=== PATIENT | male | born 1965 | race African-American/Black ===

== ENCOUNTER 2019-02-24 11:54 | Inpatient (IN) | payer SELFPAY ==
[~2019-02-24] VITALS: Ht 167.6 cm; Wt 77.1 kg
[~2019-02-24 11:54] MED LIST: HYDR-3164 PO; NAPR-682 PO; ORPH100T PO
[2019-02-24] MEDS ORDERED: traMADol 50 MG TABLET PO ONE (13:15)
--- NOTE | 2019-02-24 13:48 | RAD ---
RIBS RIGHT AND PA CHEST INDICATION: Right rib pain after fall against table one week ago. COMPARISON STUDY: None. FINDINGS: Lungs: Lower lung volume. Right basilar rounded opacity. Pleura: Moderate right pleural effusion. Heart and Mediastinum: The cardiomediastinal silhouette is normal. The great vessels of the thorax are normal. Bones and Soft Tissues: Acute minimally displaced right lateral 11th rib fracture. IMPRESSION: 1. Acute minimally displaced right lateral 11th rib fracture. No pneumothorax. 2. Moderate right pleural effusion, possibly hemothorax. 3. Rounded right basilar lung opacity, which may represent loculated pleural fluid or a chest wall hematoma, although a pulmonary mass is not excluded. Recommend further evaluation with CT of the chest. Electronically signed by: Caio Colmneares MD (02/24/2019 1:45 PM) [facility]
--- NOTE | 2019-02-24 14:39 | PHYS DOC ---
Past Medical History Past Medical History: Hypertension Past Surgical History: No Surgical History Smoking: Less than 1pk/day Alcohol Use: Heavy Additional Information: reports drinking 2 16 ounce cans of beer daily Drug Use: None Adult General Chief Complaint Chief Complaint: BACK PAIN OR INJURY HPI HPI Patient is a 53 year old AA male who presents to the ER with complaints of R low back pain after falling onto a glass table a week ago. Pt currently rates his pain a 8/10 on the pain scale. The pain increases with palpation and movement there are no alleviating factors. Pt states he lost his balance while reaching across his sofa table and that is why he fell. Review of Systems Review of Systems Constitutional: Denies fever or chills [] Eyes: Denies change in visual acuity, redness, or eye pain [] HENT: Denies nasal congestion or sore throat [] Respiratory: Denies cough, wheezing, or shortness of breath [] Cardiovascular: No additional information not addressed in HPI, denies chest pain or palpitations [] GI: Denies abdominal pain, nausea, vomiting, or diarrhea [] : Denies dysuria or hematuria [] Musculoskeletal: See hPI Integument: Denies rash or skin lesions [] Neurologic: Denies headache, focal weakness or sensory changes [] Complete systems were reviewed and found to be within normal limits, except as documented in this note. Current Medications Current Medications Current Medications Medications (Trade) Dose Ordered Sig/[facility] Start Time Stop Time Status Last Admin Dose Admin Tramadol HCl (Ultram) 50 mg 1X ONCE 02/24/19 13:15 02/24/19 13:16 DC 02/24/19 13:13 50 MG Allergies Allergies Allergies Coded Allergies Type Severity Reaction Last Updated Verified No Known Drug Allergies 06/24/16 No Physical Exam Physical Exam Constitutional: Well developed, well nourished, no acute distress, non-toxic appearance. [] HENT: Normocephalic, atraumatic, bilateral external ears normal, nose normal. [] Eyes: conjunctiva normal, no discharge. [] Neck: Normal range of motion, no tenderness, supple, no stridor. [] Cardiovascular:Heart rate regular rhythm Lungs & Thorax: Bilateral breath sounds clear to auscultation in upper lobes, diminished in posterior bases on the right, clear in the posterior left carcamo; lateral R rib TTP, no crepitus, R posterior lower rib TTP [] Abdomen: soft, no tenderness, no masses, no pulsatile masses. [] Skin: Warm, dry, no erythema, no rash. [] Back: No bony tenderness, Bruising noted to R thoracic paraspinal area Extremities: No tenderness, no cyanosis, no clubbing, ROM intact, no edema. [] Neurologic: Alert and oriented X 3, no focal deficits noted. [] Psychologic: Affect normal, judgement normal, mood normal. [] Current Patient Data Vital Signs Vital Signs Date Time Temp Pulse Resp B/P (MAP) Pulse Ox O2 Delivery O2 Flow Rate FiO2 02/24/19 13:13 17 96 Room Air 02/24/19 12:32 98.5 90 145/93 (110) 98.5 EKG EKG [] Radiology/Procedures Radiology/Procedures PROCEDURE: RIBS RIGHT AND PA CHEST RIBS RIGHT AND PA CHEST INDICATION: Right rib pain after fall against table one week ago. COMPARISON STUDY: None. FINDINGS: Lungs: Lower lung volume. Right basilar rounded opacity. Pleura: Moderate right pleural effusion. Heart and Mediastinum: The cardiomediastinal silhouette is normal. The great vessels of the thorax are normal. Bones and Soft Tissues: Acute minimally displaced right lateral 11th rib fracture. IMPRESSION: 1. Acute minimally displaced right lateral 11th rib fracture. No pneumothorax. 2. Moderate right pleural effusion, possibly hemothorax. 3. Rounded right basilar lung opacity, which may represent loculated pleural fluid or a chest wall hematoma, although a pulmonary mass is not excluded. Recommend further evaluation with CT of the chest. [] PROCEDURE: CT CHEST WO CONTRAST CT CHEST WO CONTRAST INDICATION: Fall with rib fracture. COMPARISON STUDY: Chest radiograph 02/24/2019. TECHNIQUE: Unenhanced axial images were obtained through the lungs and upper abdomen. Coronal and sagittal multiplanar reconstructions were also obtained. PQRS compliance statement: One or more of the following individualized dose reduction techniques were utilized for this examination: 1. Automated exposure control 2. Adjustment of the mA and/or kV according to patient size 3. Use of iterative reconstruction technique FINDINGS: Lungs and Airways: No pulmonary mass or consolidation. Right basilar relaxation atelectasis. Calcified pulmonary granulomas. Normal central airways. Pleura: There are several large ovoid well-circumscribed pleural masses in the right hemithorax with central hypoattenuation and areas of calcification. The largest of these measures 13.2 x 7 x 7.3 cm. Heart and Mediastinum: The visualized thyroid gland is normal in size and attenuation. No axillary or supraclavicular lymphadenopathy. No mediastinal lymphadenopathy. Calcified right hilar lymph nodes consistent with remote granulomatous disease. Normal cardiac size. No pericardial effusion. Coronary artery atherosclerotic disease. The great vessels of the thorax are normal. Abdomen: The visualized abdominal organs demonstrate no abnormality. Bones and Soft Tissues: Acute nondisplaced right lateral 11th rib fracture (series 7 image 166). Multilevel degenerative changes of the spine. IMPRESSION: 1. Multiple large right ovoid pleural masses, largest measuring up to 13.2 cm. Considerations would include chronic multiloculated hemothorax or chronic loculated effusion/empyema. Localized fibrous tumor of the pleura can rarely undergo malignant degeneration and metastasize, and might have a similar appearance. Comparison with prior outside imaging would be helpful if available, otherwise contrast enhanced CT chest may provide additional information. PET CT and/or tissue sampling could also be considered. 2. No pulmonary mass. No mediastinal lymphadenopathy. Evaluation for hilar lymphadenopathy impaired by lack of intravenous contrast. 3. Acute nondisplaced right lateral 11th rib fracture. No pneumothorax. Course & Med Decision Making Course & Med Decision Making Pertinent Labs and Imaging studies reviewed. (See chart for details) DX: Acute 11th R rib fx, R hemothorax 1434- Dr. Franklin order CT chest without contrast. Call IR for chest tube insertion. 1437- Dr. Trinidad notified of patient 1445- Dr. Colby will admit patient for R rib fracture and R hemothorax [] Dragon Disclaimer Dragon Disclaimer This electronic medical record was generated, in whole or in part, using a voice recognition dictation system. Departure Departure Impression: Primary Impression: Fracture of rib of right side Additional Impression: Hemothorax on right Disposition: 09 ADMITTED INPATIENT Admitting Physician: CHON (Earnestine) Condition: STABLE Referrals: NO PCP (PCP) Problem Qualifiers Primary Impression: Fracture of rib of right side Encounter type: initial encounter Rib fracture type: single rib Fracture type: closed Qualified Codes: S22.31XA - Fracture of one rib, right side, initial encounter for closed fracture CYDNEY FRANKLIN MANAGER TECHNICAL Feb 24, 2019 14:39
--- NOTE | 2019-02-24 14:55 | PDOC1 ---
History and Physical Date of Admission Date of Admission DATE: 02/24/19 TIME: 14:53 Identification/Chief Complaint Chief Complaint seen in er, 53 year old AA male who presents to the ER with complaints of R low back pain after falling onto a glass table a week ago. states he was reaching for something and lost his balance Past Medical History Past Medical History Past Medical History Past Medical History: Hypertension Past Surgical History: No Surgical History Smoking: Less than 1pk/day Alcohol Use: Heavy Additional Information: reports drinking 2 16 ounce cans of beer daily Drug Use: None family hx HTN ENT: No pertinent hx Family History Family History: High Cholestrol, Hypertension Social History Smoke: <1 pack per day ALCOHOL: heavy Drugs: None Current Medications Current Medications Current Medications Tramadol HCl (Ultram) 50 mg 1X ONCE PO Last administered on 02/24/19at 13:13; Start 02/24/19 at 13:15; Stop 02/24/19 at 13:16; Status DC Active Scripts Active Black 5-325 Tablet (Acetaminophen/Hydrocodone Bitart) 1 Each Tablet 1 Tab PO PRN Q6HRS PRN Orphenadrine Citrate 100 Mg Tablet.er 100 Mg PO Q12HR Anaprox Ds (Naproxen Sodium) 550 Mg Tablet 550 Mg PO Q12HR Allergies Allergies: Coded Allergies: No Known Drug Allergies (Unverified , 06/24/16) ROS Review of System Review of Systems Review of Systems Constitutional: Denies fever or chills [] Eyes: Denies change in visual acuity, redness, or eye pain [] HENT: Denies nasal congestion or sore throat [] Respiratory: Denies cough POS MILD shortness of breath [] Cardiovascular: No additional information not addressed in HPI [] GI: Denies abdominal pain, nausea, vomiting, bloody stools or diarrhea [] : Denies dysuria or hematuria [] Musculoskeletal: back pain [] Integument: Denies rash or skin lesions [] Neurologic: Denies headache, focal weakness or sensory changes [] Endocrine: Denies polyuria or polydipsia [] 14 PT systems were reviewed and found to be within normal limits, except as documented . Neurological: Yes Gait Disturbance Physical Exam Physical Exam Physical Exam Physical Exam Constitutional: Well developed, well nourished, no acute distress, non-toxic appearance. [] HENT: Normocephalic, atraumatic, bilateral external ears normal, oropharynx moist, no oral exudates, nose normal. [] Eyes: PERRLA, EOMI, conjunctiva normal, no discharge. [] Neck: Normal range of motion, no tenderness, supple, no stridor. [] Cardiovascular:Heart rate regular rhythm, no murmur [] Lungs & Thorax: Bilateral breath sounds clear to auscultation [] Abdomen: Bowel sounds normal, soft, no tenderness, no masses, no pulsatile masses. [] Skin: Warm, dry, no erythema, no rash. [] Back: CVA tenderness. [] Extremities: No tenderness, no cyanosis, no clubbing, ROM intact, no edema. [] Neurologic: Alert and oriented X 3, normal motor function, normal sensory function, no focal deficits noted. [] Psychologic: Affect normal, judgement normal, mood normal. [] General: mild distress HEENT: EOMI Heart: RRR, no thrills Abdomen: Normal bowel sounds, Soft Rectal Exam: not examined PELVIC: Examination not indicated Extremities: No cyanosis, No edema Neuro: Normal speech, Strength at 5/5 X4 ext, Cranial nerves 3-12 NL Psych/Mental Status: Mental status NL, Mood NL Vitals Vitals Vital Signs Date Time Temp Pulse Resp B/P (MAP) Pulse Ox O2 Delivery O2 Flow Rate FiO2 02/24/19 13:13 17 96 Room Air 02/24/19 12:32 98.5 90 145/93 (110) 98.[address] CHEST WO CONTRAST INDICATION: Fall with rib fracture. COMPARISON STUDY: Chest radiograph 02/24/2019. TECHNIQUE: Unenhanced axial images were obtained through the lungs and upper abdomen. Coronal and sagittal multiplanar reconstructions were also obtained. PQRS compliance statement: One or more of the following individualized dose reduction techniques were utilized for this examination: 1. Automated exposure control 2. Adjustment of the mA and/or kV according to patient size 3. Use of iterative reconstruction technique FINDINGS: Lungs and Airways: No pulmonary mass or consolidation. Right basilar relaxation atelectasis. Calcified pulmonary granulomas. Normal central airways. Pleura: There are several large ovoid well-circumscribed pleural masses in the right hemithorax with central hypoattenuation and areas of calcification. The largest of these measures 13.2 x 7 x 7.3 cm. Heart and Mediastinum: The visualized thyroid gland is normal in size and attenuation. No axillary or supraclavicular lymphadenopathy. No mediastinal lymphadenopathy. Calcified right hilar lymph nodes consistent with remote granulomatous disease. Normal cardiac size. No pericardial effusion. Coronary artery atherosclerotic disease. The great vessels of the thorax are normal. Abdomen: The visualized abdominal organs demonstrate no abnormality. Bones and Soft Tissues: Acute nondisplaced right lateral 11th rib fracture (series 7 image 166). Multilevel degenerative changes of the spine. IMPRESSION: 1. Multiple large right ovoid pleural masses, largest measuring up to 13.2 cm. Considerations would include chronic multiloculated hemothorax or chronic loculated effusion/empyema. Localized fibrous tumor of the pleura can rarely undergo malignant degeneration and metastasize, and might have a similar appearance. Comparison with prior outside imaging would be helpful if available, otherwise contrast enhanced CT chest may provide additional information. PET CT and/or tissue sampling could also be considered. 2. No pulmonary mass. No mediastinal lymphadenopathy. Evaluation for hilar lymphadenopathy impaired by lack of intravenous contrast. 3. Acute nondisplaced right lateral 11th rib fracture. No pneumothorax. Electronically signed by: Penny Logan MD (02/24/2019 3:43 PM) [facility] DICTATED and SIGNED BY: PENNY LOGAN MD DATE: 02/24/19 1543 PATIENT: GARRY DREW GACCOUNT: [id number] : 1965 LOCATION: ER AGE: 53 SEX: M EXAM STATUS: REG ER ORD. PHYSICIAN: CYDNEY FRANKLIN APRN REASON: R rib pain after fall against table 1 week ago, diminished lung sounds PROCEDURE: RIBS RIGHT AND PA CHEST RIBS RIGHT AND PA CHEST INDICATION: Right rib pain after fall against table one week ago. COMPARISON STUDY: None. FINDINGS: Lungs: Lower lung volume. Right basilar rounded opacity. Pleura: Moderate right pleural effusion. Heart and Mediastinum: The cardiomediastinal silhouette is normal. The great vessels of the thorax are normal. Bones and Soft Tissues: Acute minimally displaced right lateral 11th rib fracture. IMPRESSION: 1. Acute minimally displaced right lateral 11th rib fracture. No pneumothorax. 2. Moderate right pleural effusion, possibly hemothorax. 3. Rounded right basilar lung opacity, which may represent loculated pleural fluid or a chest wall hematoma, although a pulmonary mass is not excluded. Recommend further evaluation with CT of the chest. Electronically signed by: Penny Logan MD (02/24/2019 1:45 PM) [facility] VTE Prophylaxis Ordered VTE Prophylaxis Devices: Yes VTE Pharmacological Prophylaxi: Contraindicated Assessment/Plan Assessment/Plan IMPRESSION: 1. Acute minimally displaced right lateral 11th rib fracture. No pneumothorax. 2. Moderate right pleural effusion, possibly hemothorax. 3. Rounded right basilar lung opacity, which may represent loculated pleural fluid or a chest wall hematoma, although a pulmonary mass is not excluded. 4. Mod alcohol abuse 5. Multiple large right ovoid pleural masses, largest measuring up to 13.2 cm. Considerations would include chronic multiloculated hemothorax or chronic loculated effusion/empyema. Localized fibrous tumor of the pleura can rarely undergo malignant degeneration and metastasize, and might have a similar appearance. Comparison with prior outside imaging would be helpful if available, otherwise contrast enhanced CT chest may provide additional information. PET CT and/or tissue sampling could also be considered. 6. No pulmonary mass. No mediastinal lymphadenopathy. Evaluation for hilar lymphadenopathy impaired by lack of intravenous contrast. 7. Acute nondisplaced right lateral 11th rib fracture. No pneumothorax. PLAN ADMIT CT of the chest. PULM CONSULT TRAUMA CONSULT tele ALCOHOL WITHDRAWAL PRECAUTIONS CTS consult for possibly loculated hemothorax 74 MIN PT EXAM, CHART REVIEW, > 50% OF TIME SPENT WITH EXAM, CHART REVIEW, PT CARE COORDINATION KAMILLA JULIAN MD Feb 24, 2019 14:55
--- NOTE | 2019-02-24 15:23 | CONS ---
DATE OF CONSULTATION: PULMONARY CONSULTATION ATTENDING PHYSICIAN: Dr. Colby. REASON FOR CONSULTATION: Abnormal CT chest, suspected hemothorax. HISTORY OF PRESENT ILLNESS: The patient is a 53-year-old male who has no history of tobacco use. He presented to the Emergency Room after he fell last on his back and was complaining of pain in the right lower back area. A chest x-ray was performed in the Emergency Room along with rib series. The patient was found to have moderate partially loculated right pleural effusion and another density, which also appears to be loculated fluid. He also had minimally displaced right lateral 11th rib fracture. The patient underwent a CT of the chest, which shows multiple organised pockets of loculated fluid collection. As a result, I have been asked to see him for further evaluation. He denies any cough, fever or chills. Denies any prior history of pneumonias. No weight loss. He does not smoke cigarettes. No hemoptysis. PAST MEDICAL HISTORY: Essentially unremarkable except history of alcoholism. PAST SURGICAL HISTORY: No surgeries. ALLERGIES: None. MEDICATIONS AT HOME: None. SOCIAL HISTORY: Nonsmoker, but history of chronic alcoholism. FAMILY HISTORY: Noncontributory to lungs. PHYSICAL EXAMINATION: VITAL SIGNS: Reviewed, stable. Pulse ox 96% on room air. NECK: Supple. LUNGS: With diminished breath sounds in the right base. CARDIOVASCULAR: With a regular rate. ABDOMEN: Soft. EXTREMITIES: With no pitting edema. LABORATORY DATA: Have been ordered and are pending. IMPRESSION: 1. Status post fall with organized multiloculated fluid collection in the right lower pleural space. Likely organized hemothorax. Clinically, he lacks symptoms of any malignancy and also lacks symptoms of any infectious etiology. 2. No significant history of tobacco use. 3. History of alcoholism. RECOMMENDATIONS: 1. The patient is currently being admitted. IR has been consulted for CT-guided chest tube drainage. May need a chest tube with bloody effusion. 2. Pain control per PCP. 3. We will send the pleural fluid for analysis including cytology. 4. Obtain hemoglobin and platelet count and coagulopathy panel. 5. Discussed with ER physician. RUBENS BALDERRAMA MD DR: JAMES/jonathan JOB#: [id number] / [id number]
[2019-02-24] MEDS ORDERED: 0.9 % SODIUM CHLORIDE 10 ML DISP.SYRIN. IV PRN (15:30)
[2019-02-24] MEDS ORDERED: LORazepam 1 MG TABLET PO PRN ×2 (15:30)
[2019-02-24] MEDS ORDERED: cloNIDine HCL 0.1 MG TABLET PO PRN ×2 (15:30)
[2019-02-24] MEDS ORDERED: MAG HYDROX/ALUMINUM HYD/SIMETH 30 ML ORAL.SUSP PO PRN (15:30)
[2019-02-24] MEDS ORDERED: ONDANSETRON PF 4 MG/2 ML VIAL. IV PRN (15:30)
[2019-02-24] MEDS ORDERED: diphenhydrAMINE 50 MG/ML VIAL IVP PRN ×2 (15:30)
[2019-02-24] MEDS ORDERED: HALOPERIDOL LACTATE 5 MG/ML VIAL. IVP PRN (15:30)
[2019-02-24] MEDS ORDERED: DOCUSATE SODIUM 100 MG CAPSULE. PO PRN (15:30)
[2019-02-24] MEDS ORDERED: guaiFENesin ORAL 200 MG/10 ML LIQUID. PO PRN (15:30)
--- NOTE | 2019-02-24 15:46 | RAD ---
CT CHEST WO CONTRAST INDICATION: Fall with rib fracture. COMPARISON STUDY: Chest radiograph 02/24/2019. TECHNIQUE: Unenhanced axial images were obtained through the lungs and upper abdomen. Coronal and sagittal multiplanar reconstructions were also obtained. RS compliance statement: One or more of the following individualized dose reduction techniques were utilized for this examination: 1. Automated exposure control 2. Adjustment of the mA and/or kV according to patient size 3. Use of iterative reconstruction technique FINDINGS: Lungs and Airways: No pulmonary mass or consolidation. Right basilar relaxation atelectasis. Calcified pulmonary granulomas. Normal central airways. Pleura: There are several large ovoid well-circumscribed pleural masses in the right hemithorax with central hypoattenuation and areas of calcification. The largest of these measures 13.2 x 7 x 7.3 cm. Heart and Mediastinum: The visualized thyroid gland is normal in size and attenuation. No axillary or supraclavicular lymphadenopathy. No mediastinal lymphadenopathy. Calcified right hilar lymph nodes consistent with remote granulomatous disease. Normal cardiac size. No pericardial effusion. Coronary artery atherosclerotic disease. The great vessels of the thorax are normal. Abdomen: The visualized abdominal organs demonstrate no abnormality. Bones and Soft Tissues: Acute nondisplaced right lateral 11th rib fracture (series 7 image 166). Multilevel degenerative changes of the spine. IMPRESSION: 1. Multiple large right ovoid pleural masses, largest measuring up to 13.2 cm. Considerations would include chronic multiloculated hemothorax or chronic loculated effusion/empyema. Localized fibrous tumor of the pleura can rarely undergo malignant degeneration and metastasize, and might have a similar appearance. Comparison with prior outside imaging would be helpful if available, otherwise contrast enhanced CT chest may provide additional information. PET CT and/or tissue sampling could also be considered. 2. No pulmonary mass. No mediastinal lymphadenopathy. Evaluation for hilar lymphadenopathy impaired by lack of intravenous contrast. 3. Acute nondisplaced right lateral 11th rib fracture. No pneumothorax. Electronically signed by: Caio Colmenares MD (02/24/2019 3:43 PM) [facility]
[2019-02-24] MEDS ORDERED: MULTIVIT INFUSN,ADULT 4,VIT K 10 ML, THIAMINE INJ 100 MG, FOLIC ACID INJ 1 MG in IV NOR... IV SCH (16:00)
[2019-02-24] MEDS: IPRATRPIUM/ALBUTEROL 0.5/2.5MG 3 ML NEBU. NEB SCH ×3 (16:00→23:35)
[2019-02-24 16:15] LABS: PROTHROMBIN TIME PATIENT 12.7 SEC (11.7-14.0)
--- NOTE | 2019-02-24 16:40 | PDOC ---
SURGICAL PROGRESS NOTE Subjective Trauma consult received Pt off unit for CT Would recommend CTS consult for possibly loculated hemothorax Thanks! Vital Signs Vital Signs Date Time Temp Pulse Resp B/P (MAP) Pulse Ox O2 Delivery O2 Flow Rate FiO2 02/24/19 13:13 17 96 Room Air 02/24/19 12:32 98.5 90 145/93 (110) 98.5 Labs Laboratory Tests Test 02/24/19 15:37 Prothrombin Time 12.7 SEC (11.7-14.0) Prothromb Time International Ratio 1.0 (0.8-1.1) Laboratory Tests Test 02/24/19 15:37 Prothrombin Time 12.7 SEC (11.7-14.0) Prothromb Time International Ratio 1.0 (0.8-1.1) PETR EDWARDS MD Feb 24, 2019 16:40
[2019-02-24 17:12] VITALS: BP 179/114
[2019-02-24] MEDS ORDERED: MULTIVIT INFUSN,ADULT 4,VIT K 10 ML, THIAMINE INJ 100 MG, FOLIC ACID INJ 1 MG in IV NOR... IV ONE (17:30)
[2019-02-24 18:37] LABS: BASO # 0.1 x10^3/uL (0.0-0.2); BASO % 1 % (0-3); EOS # 0.1 x10^3/uL (0.0-0.7); EOS % 2 % (0-3); HEMATOCRIT 41.8 % (39.0-53.0); HEMOGLOBIN 14.5 g/dL (13.0-17.5); LYMPH # 1.6 x10^3/uL (1.0-4.8); LYMPH % 24 % (24-48); MEAN CORPUSCULAR HEMOGLOBIN 32 pg (25-35); MEAN CORPUSCULAR HGB CONC 35 g/dL (31-37); MEAN CORPUSCULAR VOLUME 93 fL (79-100); MONO # 1.1 x10^3/uL (0.0-1.1); MONO % 16 % (0-9); NEUT # 3.6 x10^3/uL (1.8-7.7); NEUT % 56 % (31-73); PLATELET COUNT 272 x10^3/uL (140-400); RED CELL DISTRIBUTION WIDTH 12.7 % (11.5-14.5); WHITE BLOOD COUNT 6.5 x10^3/uL (4.0-11.0)
[2019-02-24] MEDS: ACETAMINOPHEN 325 MG TABLET. PO PRN (18:55)
[2019-02-24 18:58] LABS: ALBUMIN/GLOBULIN RATIO 0.8 (1.0-1.7); CALCIUM 10.1 mg/dL (8.5-10.1); CREATININE 0.9 mg/dL (0.7-1.3); GFR 107.2; POTASSIUM 4.2 mmol/L (3.5-5.1); TOTAL BILIRUBIN 0.8 mg/dL (0.2-1.0); TOTAL PROTEIN 9.2 g/dL (6.4-8.2)
[2019-02-24 19:44] VITALS: BP 141/107
[2019-02-24] MEDS: LORazepam 0.5 MG TABLET PO PRN (20:39)
[2019-02-24 22:45] VITALS: BP 133/99
[2019-02-25] VITALS (15 sets, daily range): BP systolic 67–170; BP diastolic 37–112
[2019-02-25] MEDS: IV NORMAL SALINE 1000ML BAG 1,000 ML IV SCH ×3 (00:40→21:08)
[2019-02-25] MEDS: LORazepam 0.5 MG TABLET PO PRN (03:07)
[2019-02-25] MEDS: ACETAMINOPHEN 325 MG TABLET. PO PRN (03:08)
[2019-02-25] MEDS: IPRATRPIUM/ALBUTEROL 0.5/2.5MG 3 ML NEBU. NEB SCH ×5 (03:55→21:00)
[2019-02-25] MEDS ORDERED: MULTIVIT INFUSN,ADULT 4,VIT K 10 ML, THIAMINE INJ 100 MG, FOLIC ACID INJ 1 MG in IV NOR... IV SCH (09:00)
[2019-02-25] MEDS ORDERED: THIAMINE INJ 100 MG in IV DEXTROSE 5% 50 ML IV SCH (09:00)
[2019-02-25] MEDS: MULTIVITAMIN with MINERAL TABLET. PO SCH (09:00)
[2019-02-25] MEDS: FOLIC ACID 1 MG TABLET. PO SCH (09:00)
[2019-02-25] MEDS: THIAMINE 100 MG TABLET. PO SCH (09:00)
--- NOTE | 2019-02-25 09:00 | PDOC ---
Provider Note Provider Note IR NOTE CT reviewed. No acute appearing effusion or hemothorax. 11th rib fracture noted. The appearance is also not consistent with a subacute hemothorax based on injury less than a week ago. There are more solid appearing components of the pleural based masses/collections some of which are calcified. (Reviewed CT with pulmonology. Will plan on ultrasound eval with possible drain or biopsy. ANTONIA SALAZAR MD Feb 25, 2019 09:00
[2019-02-25 09:16] LABS: ALBUMIN 3.2 g/dL (3.4-5.0); ALBUMIN/GLOBULIN RATIO 0.7 (1.0-1.7); CALCIUM 9.2 mg/dL (8.5-10.1); CREATININE 0.9 mg/dL (0.7-1.3); GFR 107.2; POTASSIUM 3.5 mmol/L (3.5-5.1); TOTAL BILIRUBIN 0.7 mg/dL (0.2-1.0)
--- NOTE | 2019-02-25 09:29 | PDOC ---
PULMONARY PROGRESS NOTES Subjective no soa Vitals Vital Signs Date Time Temp Pulse Resp B/P (MAP) Pulse Ox O2 Delivery O2 Flow Rate FiO2 02/25/19 07:00 98.1 87 18 153/95 (114) 99 Room Air 98.1 General: Alert, No acute distress Lungs: Other (decrease right base) Cardiovascular: S1 Abdomen: Soft Neuro Exam: Alert Extremities: No Edema Skin: Warm Labs Laboratory Tests Test 02/24/19 15:37 02/25/19 08:15 White Blood Count 6.5 x10^3/uL (4.0-11.0) Red Blood Count 4.50 x10^6/uL (4.30-5.70) Hemoglobin 14.5 g/dL (13.0-17.5) Hematocrit 41.8 % (39.0-53.0) Mean Corpuscular Volume 93 fL (79-100) Mean Corpuscular Hemoglobin 32 pg (25-35) Mean Corpuscular Hemoglobin Concent 35 g/dL (31-37) Red Cell Distribution Width 12.7 % (11.5-14.5) Platelet Count 272 x10^3/uL (140-400) Neutrophils (%) (Auto) 56 % (31-73) Lymphocytes (%) (Auto) 24 % (24-48) Monocytes (%) (Auto) 16 % (0-9) Eosinophils (%) (Auto) 2 % (0-3) Basophils (%) (Auto) 1 % (0-3) Neutrophils # (Auto) 3.6 x10^3/uL (1.8-7.7) Lymphocytes # (Auto) 1.6 x10^3/uL (1.0-4.8) Monocytes # (Auto) 1.1 x10^3/uL (0.0-1.1) Eosinophils # (Auto) 0.1 x10^3/uL (0.0-0.7) Basophils # (Auto) 0.1 x10^3/uL (0.0-0.2) Prothrombin Time 12.7 SEC (11.7-14.0) Prothromb Time International Ratio 1.0 (0.8-1.1) Sodium Level 138 mmol/L (136-145) 139 mmol/L (136-145) Potassium Level 4.2 mmol/L (3.5-5.1) 3.5 mmol/L (3.5-5.1) Chloride Level 99 mmol/L (98-107) 102 mmol/L (98-107) Carbon Dioxide Level 29 mmol/L (21-32) 29 mmol/L (21-32) Anion Gap 10 (6-14) 8 (6-14) Blood Urea Nitrogen 15 mg/dL (8-26) 10 mg/dL (8-26) Creatinine 0.9 mg/dL (0.7-1.3) 0.9 mg/dL (0.7-1.3) Estimated GFR (Cockcroft-Gault) 107.2 107.2 BUN/Creatinine Ratio 17 (6-20) 11 (6-20) Glucose Level 90 mg/dL (70-99) 101 mg/dL (70-99) Calcium Level 10.1 mg/dL (8.5-10.1) 9.2 mg/dL (8.5-10.1) Total Bilirubin 0.8 mg/dL (0.2-1.0) 0.7 mg/dL (0.2-1.0) Aspartate Amino Transf (AST/SGOT) 29 U/L (15-37) 26 U/L (15-37) Alanine Aminotransferase (ALT/SGPT) 33 U/L (16-63) 25 U/L (16-63) Alkaline Phosphatase 76 U/L (46-116) 61 U/L (46-116) Total Protein 9.2 g/dL (6.4-8.2) 8.0 g/dL (6.4-8.2) Albumin 4.0 g/dL (3.4-5.0) 3.2 g/dL (3.4-5.0) Albumin/Globulin Ratio 0.8 (1.0-1.7) 0.7 (1.0-1.7) Laboratory Tests Test 02/24/19 15:37 02/25/19 08:15 White Blood Count 6.5 x10^3/uL (4.0-11.0) Red Blood Count 4.50 x10^6/uL (4.30-5.70) Hemoglobin 14.5 g/dL (13.0-17.5) Hematocrit 41.8 % (39.0-53.0) Mean Corpuscular Volume 93 fL (79-100) Mean Corpuscular Hemoglobin 32 pg (25-35) Mean Corpuscular Hemoglobin Concent 35 g/dL (31-37) Red Cell Distribution Width 12.7 % (11.5-14.5) Platelet Count 272 x10^3/uL (140-400) Neutrophils (%) (Auto) 56 % (31-73) Lymphocytes (%) (Auto) 24 % (24-48) Monocytes (%) (Auto) 16 % (0-9) Eosinophils (%) (Auto) 2 % (0-3) Basophils (%) (Auto) 1 % (0-3) Neutrophils # (Auto) 3.6 x10^3/uL (1.8-7.7) Lymphocytes # (Auto) 1.6 x10^3/uL (1.0-4.8) Monocytes # (Auto) 1.1 x10^3/uL (0.0-1.1) Eosinophils # (Auto) 0.1 x10^3/uL (0.0-0.7) Basophils # (Auto) 0.1 x10^3/uL (0.0-0.2) Prothrombin Time 12.7 SEC (11.7-14.0) Prothromb Time International Ratio 1.0 (0.8-1.1) Sodium Level 138 mmol/L (136-145) 139 mmol/L (136-145) Potassium Level 4.2 mmol/L (3.5-5.1) 3.5 mmol/L (3.5-5.1) Chloride Level 99 mmol/L (98-107) 102 mmol/L (98-107) Carbon Dioxide Level 29 mmol/L (21-32) 29 mmol/L (21-32) Anion Gap 10 (6-14) 8 (6-14) Blood Urea Nitrogen 15 mg/dL (8-26) 10 mg/dL (8-26) Creatinine 0.9 mg/dL (0.7-1.3) 0.9 mg/dL (0.7-1.3) Estimated GFR (Cockcroft-Gault) 107.2 107.2 BUN/Creatinine Ratio 17 (6-20) 11 (6-20) Glucose Level 90 mg/dL (70-99) 101 mg/dL (70-99) Calcium Level 10.1 mg/dL (8.5-10.1) 9.2 mg/dL (8.5-10.1) Total Bilirubin 0.8 mg/dL (0.2-1.0) 0.7 mg/dL (0.2-1.0) Aspartate Amino Transf (AST/SGOT) 29 U/L (15-37) 26 U/L (15-37) Alanine Aminotransferase (ALT/SGPT) 33 U/L (16-63) 25 U/L (16-63) Alkaline Phosphatase 76 U/L (46-116) 61 U/L (46-116) Total Protein 9.2 g/dL (6.4-8.2) 8.0 g/dL (6.4-8.2) Albumin 4.0 g/dL (3.4-5.0) 3.2 g/dL (3.4-5.0) Albumin/Globulin Ratio 0.8 (1.0-1.7) 0.7 (1.0-1.7) Medications Active Scripts Medications Dose Route/Sig Max Daily Dose Days Date Category [place] 5-325 Tablet (Acetaminophen/Hydrocodone Bitart) 1 Each Tablet 1 Tab PO PRN Q6HRS PRN 16 Rx Orphenadrine Citrate 100 Mg Tablet.er 100 Mg PO Q12HR 16 Rx Anaprox Ds (Naproxen Sodium) 550 Mg Tablet 550 Mg PO Q12HR 16 Rx Impression . 1. Status post fall with organized multiloculated fluid collection in the right lower pleural space. ? etiology. Likely organized hemothorax but some calcification suggest chronicity. ? fibrothorax. Clinically, he lacks symptoms of any malignancy and also lacks symptoms of any infectious etiology. 2. No significant history of tobacco use. 3. History of alcoholism. Plan . 1. d/w Dr Trinidad.thoracentesis with possible chest tube drainage. May need VATS/ Decortication if fluid consistency is thick. 2. Pain control per PCP. 3. We will send the pleural fluid for analysis including cytology. 4. No coagulopathy RUBENS BALDERRAMA MD Feb 25, 2019 09:29
[2019-02-25 09:49] LABS: BASO # 0.1 x10^3/uL (0.0-0.2); BASO % 2 % (0-3); EOS # 0.1 x10^3/uL (0.0-0.7); EOS % 2 % (0-3); HEMATOCRIT 38.5 % (39.0-53.0); HEMOGLOBIN 13.2 g/dL (13.0-17.5); LYMPH % 24 % (24-48); MEAN CORPUSCULAR HEMOGLOBIN 32 pg (25-35); MEAN CORPUSCULAR HGB CONC 34 g/dL (31-37); MEAN CORPUSCULAR VOLUME 92 fL (79-100); MONO # 0.6 x10^3/uL (0.0-1.1); MONO % 16 % (0-9); NEUT # 2.2 x10^3/uL (1.8-7.7); NEUT % 56 % (31-73); PLATELET COUNT 246 x10^3/uL (140-400); RED BLOOD COUNT 4.18 x10^6/uL (4.30-5.70); RED CELL DISTRIBUTION WIDTH 12.3 % (11.5-14.5)
--- NOTE | 2019-02-25 10:18 | NUR ---
[facility] following pt for dc planning. Chart reviewed and discussed with RN. Pt lives at home with family. [facility] phoned PAT team for assessment and referral for ETOH tx referral. Will continue to follow. Addendum: 02/26/19 at 0801 by REYNA COWAN Pt seen by PAT team and is provided with resources for and [facility]. Pt has has agreed to follow up with [facility] upon dc.
[2019-02-25 10:33] LABS: BARBITURATES NEG (NEG); BENZODIAZEPINES NEG (NEG); CANNABINOIDS NEG (NEG); COCAINE NEG (NEG); METHADONE NEG (NEG); OPIATES NEG (NEG); PHENCYCLIDINE NEG (NEG)
[2019-02-25 10:34] LABS: AMPHETAMINE/METHAMPHETAMINE NEG (NEG)
[2019-02-25] MEDS ORDERED: LIDOCAINE WITH 8.4% SOD BICARB 3 ML DISP.SYRIN. ONE ×2 (13:02→13:03)
[2019-02-25] MEDS ORDERED: MIDAZOLAM HCL/PF 2 MG/2 ML VIAL. ONE ×2 (13:25→13:26)
[2019-02-25] MEDS ORDERED: fentaNYL PF VIAL 100 MCG/2 ML VIAL ONE ×2 (13:25→13:26)
--- NOTE | 2019-02-25 13:45 | PDOC ---
[facility] PROGRESS NOTE Chief Complaint Chief Complaint Hemothorax Hypertension History of Present Illness History of Present Illness 02/25/19 Pt seen and examined at bedside Pt sitting on side of bed with NAD Chest tube procedure today DW multiple family members at length DW Dr Trinidad Vitals/I&O Vitals/I&O: Vital Signs Date Time Temp Pulse Resp B/P (MAP) Pulse Ox O2 Delivery O2 Flow Rate FiO2 02/25/19 13:33 90 12 100 Nasal Cannula 2.0 02/25/19 11:00 98.1 140/98 (112) 98.1 I & O0 02/24/19 02/24/19 02/25/19 15:00 23:00 07:00 Intake Total 0 ml 60 ml Balance 0 ml 60 ml Physical Exam General: mild distress Heart: Regular rate, Normal S1 Lungs: Other (decrease right base) Abdomen: Normal bowel sounds, Soft Extremities: No cyanosis, No edema Skin: No significant lesion Labs Labs: Laboratory Tests Test 02/24/19 15:37 02/25/19 08:15 02/25/19 09:45 White Blood Count 6.5 x10^3/uL (4.0-11.0) 4.0 x10^3/uL (4.0-11.0) Red Blood Count 4.50 x10^6/uL (4.30-5.70) 4.18 x10^6/uL (4.30-5.70) Hemoglobin 14.5 g/dL (13.0-17.5) 13.2 g/dL (13.0-17.5) Hematocrit 41.8 % (39.0-53.0) 38.5 % (39.0-53.0) Mean Corpuscular Volume 93 fL (79-100) 92 fL (79-100) Mean Corpuscular Hemoglobin 32 pg (25-35) 32 pg (25-35) Mean Corpuscular Hemoglobin Concent 35 g/dL (31-37) 34 g/dL (31-37) Red Cell Distribution Width 12.7 % (11.5-14.5) 12.3 % (11.5-14.5) Platelet Count 272 x10^3/uL (140-400) 246 x10^3/uL (140-400) Neutrophils (%) (Auto) 56 % (31-73) 56 % (31-73) Lymphocytes (%) (Auto) 24 % (24-48) 24 % (24-48) Monocytes (%) (Auto) 16 % (0-9) 16 % (0-9) Eosinophils (%) (Auto) 2 % (0-3) 2 % (0-3) Basophils (%) (Auto) 1 % (0-3) 2 % (0-3) Neutrophils # (Auto) 3.6 x10^3/uL (1.8-7.7) 2.2 x10^3/uL (1.8-7.7) Lymphocytes # (Auto) 1.6 x10^3/uL (1.0-4.8) 1.0 x10^3/uL (1.0-4.8) Monocytes # (Auto) 1.1 x10^3/uL (0.0-1.1) 0.6 x10^3/uL (0.0-1.1) Eosinophils # (Auto) 0.1 x10^3/uL (0.0-0.7) 0.1 x10^3/uL (0.0-0.7) Basophils # (Auto) 0.1 x10^3/uL (0.0-0.2) 0.1 x10^3/uL (0.0-0.2) Prothrombin Time 12.7 SEC (11.7-14.0) Prothromb Time International Ratio 1.0 (0.8-1.1) Sodium Level 138 mmol/L (136-145) 139 mmol/L (136-145) Potassium Level 4.2 mmol/L (3.5-5.1) 3.5 mmol/L (3.5-5.1) Chloride Level 99 mmol/L (98-107) 102 mmol/L (98-107) Carbon Dioxide Level 29 mmol/L (21-32) 29 mmol/L (21-32) Anion Gap 10 (6-14) 8 (6-14) Blood Urea Nitrogen 15 mg/dL (8-26) 10 mg/dL (8-26) Creatinine 0.9 mg/dL (0.7-1.3) 0.9 mg/dL (0.7-1.3) Estimated GFR (Cockcroft-Gault) 107.2 107.2 BUN/Creatinine Ratio 17 (6-20) 11 (6-20) Glucose Level 90 mg/dL (70-99) 101 mg/dL (70-99) Calcium Level 10.1 mg/dL (8.5-10.1) 9.2 mg/dL (8.5-10.1) Total Bilirubin 0.8 mg/dL (0.2-1.0) 0.7 mg/dL (0.2-1.0) Aspartate Amino Transf (AST/SGOT) 29 U/L (15-37) 26 U/L (15-37) Alanine Aminotransferase (ALT/SGPT) 33 U/L (16-63) 25 U/L (16-63) Alkaline Phosphatase 76 U/L (46-116) 61 U/L (46-116) Total Protein 9.2 g/dL (6.4-8.2) 8.0 g/dL (6.4-8.2) Albumin 4.0 g/dL (3.4-5.0) 3.2 g/dL (3.4-5.0) Albumin/Globulin Ratio 0.8 (1.0-1.7) 0.7 (1.0-1.7) Urine Opiates Screen Neg (NEG) Urine Methadone Screen Neg (NEG) Urine Barbiturates Neg (NEG) Urine Phencyclidine Screen Neg (NEG) Urine Amphetamine/Methamphetamine Neg (NEG) Urine Benzodiazepines Screen Neg (NEG) Urine Cocaine Screen Neg (NEG) Urine Cannabinoids Screen Neg (NEG) Urine Ethyl Alcohol Neg (NEG) Review of Systems Review of Systems: No headache No vision change Assessment and Plan Assessmemt and Plan Problems Medical Problems: (1) Fracture of rib of right side Status: Acute (2) Hemothorax on right Status: Acute Assessment Traumatic rib fx Hemothorax Hypertension Plan Chest tube with possible bx today Pain meds Home Meds PT/OT IV fluids Appreciate Pulm Possible discharge s/p consult with Pulm Comment Review of Relevant I have reviewed the following items amanda (where applicable) has been applied. Medications: Current Medications Medications (Trade) Dose Ordered Sig/Stacy Route PRN Reason Start Time Stop Time Status Last Admin Dose Admin Sodium Chloride 1,000 ml @ 100 mls/hr Q10H IV 02/25/19 00:01 02/25/19 11:34 Acetaminophen (Tylenol) 650 mg PRN Q4HRS PRN PO TEMP OVER 100.4F OR MILD PAIN 02/24/19 15:30 02/25/19 03:08 Albuterol/ Ipratropium (Duoneb) 3 ml Q4H NEB 02/24/19 16:00 02/25/19 11:01 Lorazepam (Ativan) 0.5 mg PRN Q4HRS PRN PO ANXIETY / AGITATION 02/24/19 15:30 02/25/19 03:08 Multivitamins 10 ml/Thiamine HCl 100 mg/Folic Acid 1 mg/Sodium Chloride 1,011.2 ml @ 125 mls/ hr 1X ONCE IV 02/24/19 17:30 02/25/19 01:35 DC 02/24/19 17:27 ADAM RICE III DO Feb 25, 2019 13:45
--- NOTE | 2019-02-25 13:47 | PDOC2 ---
CONSULT Date of Consult Date of Consult DATE: 02/25/19 TIME: 13:43 Reason for Consult Reason for Consult: rib fractures s/p fall Referring Physician Referring Physician: Dr. Colby Identification/Chief Complaint Chief Complaint chest pain Source Source: Chart review, Patient History of Present Illness Reason for Visit: 53 yo M s/p fall one week ago on glass table to his chest. Presented to ER with c/o cont chest pain. Past Medical History Cardiovascular: No pertinent hx ENT: No pertinent hx Past Surgical History Past Surgical History: No pertinent history Family History Family History: High Cholestrol, Hypertension Social History <1 pack per day ALCOHOL: heavy Drugs: None Current Problem List Problem List Problems Medical Problems: (1) Fracture of rib of right side Status: Acute (2) Hemothorax on right Status: Acute Current Medications Current Medications Current Medications Tramadol HCl (Ultram) 50 mg 1X ONCE PO Last administered on 02/24/19at 13:13; Start 02/24/19 at 13:15; Stop 02/24/19 at 13:16; Status DC Sodium Chloride (Normal Saline Flush) 3 ml QSHIFT PRN IV AFTER MEDS AND BLOOD DRAWS; Start 02/24/19 at 15:30 Sodium Chloride 1,000 ml @ 100 mls/hr Q10H IV Last administered on 02/25/19at 11:34; Start 02/25/19 at 00:01 Multivitamins 10 ml/Thiamine HCl 100 mg/Folic Acid 1 mg/Sodium Chloride 1,011.2 ml @ 125 mls/ hr 1X IV ; Start 02/24/19 at 16:00; Stop 02/25/19 at 00:06; Status Cancel Ondansetron HCl (Zofran) 4 mg PRN Q4HRS PRN IV NAUSEA/VOMITING; Start 02/24/19 at 15:30 Zolpidem Tartrate (Ambien) 5 mg PRN QHS PRN PO INSOMNIA; Start 02/24/19 at 15:30 Acetaminophen (Tylenol) 650 mg PRN Q4HRS PRN PO TEMP OVER 100.4F OR MILD PAIN Last administered on 02/25/19at 03:08; Start 02/24/19 at 15:30 Al Hydroxide/Mg Hydroxide (Mylanta Plus Xs) 30 ml PRN DAILY PRN PO HEARTBURN / GAS; Start 02/24/19 at 15:30 Clonidine HCl (Catapres) 0.1 mg PRN Q6HRS PRN PO SBP>160 OR DBP>90; Start 02/24/19 at 15:30 Diphenhydramine HCl (Benadryl) 25 mg PRN Q4HRS PRN IVP ITCHING; Start 02/24/19 at 15:30 Docusate Sodium (Colace) 100 mg PRN BID PRN PO CONSTIPATION; Start 02/24/19 at 15:30 Albuterol/ Ipratropium (Duoneb) 3 ml Q4H NEB Last administered on 02/25/19at 11:01; Start 02/24/19 at 16:00 Guaifenesin (Robitussin) 200 mg PRN Q4HRS PRN PO COUGH; Start 02/24/19 at 15:30 Lorazepam (Ativan) 0.5 mg PRN Q4HRS PRN PO ANXIETY / AGITATION Last administered on 02/25/19at 03:08; Start 02/24/19 at 15:30 Multivitamins 10 ml/Thiamine HCl 100 mg/Folic Acid 1 mg/Sodium Chloride 1,011.2 ml @ 100 mls/ hr DAILY IV ; Start 02/25/19 at 09:00; Stop 03/01/19 at 19:07; Status UNV Multivitamins (Thera M Plus) 1 tab DAILY PO ; Start 02/25/19 at 09:00 Folic Acid (Folic Acid) 1 mg DAILY PO ; Start 02/25/19 at 09:00 Thiamine HCl 100 mg/Dextrose 51 ml @ 100 mls/hr DAILY IV ; Start 02/25/19 at 09:00; Stop 03/01/19 at 09:31; Status UNV Lorazepam (Ativan) 4 mg PRN Q1HR PRN PO For CIWA 8-14; Start 02/24/19 at 15:30 Lorazepam (Ativan) 8 mg PRN Q1HR PRN PO For CIWA 15 or greater; Start 02/24/19 at 15:30 Lorazepam (Ativan Inj) 2 mg PRN Q1HR PRN IV For CIWA 8-14; Start 02/24/19 at 15:30 Lorazepam (Ativan Inj) 4 mg PRN Q1HR PRN IV For CIWA 15 or greater; Start 02/24/19 at 15:30 Haloperidol Lactate (Haldol Inj) 5 mg PRN Q4HRS PRN IVP Hallucinatns,Confusn,Delirium; Start 02/24/19 at 15:30 Diphenhydramine HCl (Benadryl) 25 mg PRN Q15MIN PRN IVP EPS symptoms 2'Haldol admin; Start 02/24/19 at 15:30 Clonidine HCl (Catapres) 0.1 mg PRN Q1HR PRN PO SBP > 180 or DBP > 100, MRX3; Start 02/24/19 at 15:30 Lorazepam (Ativan Inj) 2 mg PRN Q15MIN PRN IV SEE COMMENTS; Start 02/24/19 at 15:30; Status UNV Lorazepam (Ativan Inj) 4 mg PRN Q15MIN PRN IV SEE COMMENTS; Start 02/24/19 at 15:30; Status UNV Thiamine Mononitrate (Vitamin B-1) 100 mg DAILY PO ; Start 02/25/19 at 09:00 Multivitamins 10 ml/Thiamine HCl 100 mg/Folic Acid 1 mg/Sodium Chloride 1,011.2 ml @ 125 mls/ hr 1X ONCE IV Last administered on 02/24/19at 17:27; Start 02/24/19 at 17:30; Stop 02/25/19 at 01:35; Status DC Oxycodone/ Acetaminophen (Percocet 5/325) 1 tab PRN Q3HRS PRN PO SEVERE PAIN 7- 10; Start 02/25/19 at 03:30 Lidocaine/Sodium Bicarbonate (Buffered Lidocaine 1%) 3 ml STK-MED ONCE .ROUTE ; Start 02/25/19 at 13:02; Stop 02/25/19 at 13:02; Status DC Lidocaine/Sodium Bicarbonate (Buffered Lidocaine 1%) 3 ml STK-MED ONCE .ROUTE ; Start 02/25/19 at 13:03; Stop 02/25/19 at 13:03; Status DC Midazolam HCl (Versed) 2 mg STK-MED ONCE .ROUTE ; Start 02/25/19 at 13:25; Stop 02/25/19 at 13:25; Status DC Fentanyl Citrate (Fentanyl 2ml Vial) 100 mcg STK-MED ONCE .ROUTE ; Start 02/25/19 at 13:25; Stop 02/25/19 at 13:25; Status DC Midazolam HCl (Versed) 2 mg STK-MED ONCE .ROUTE ; Start 02/25/19 at 13:26; Stop 02/25/19 at 13:27; Status DC Fentanyl Citrate (Fentanyl 2ml Vial) 100 mcg STK-MED ONCE .ROUTE ; Start 02/25/19 at 13:26; Stop 02/25/19 at 13:27; Status DC Active Scripts Active [place] 5-325 Tablet (Acetaminophen/Hydrocodone Bitart) 1 Each Tablet 1 Tab PO PRN Q6HRS PRN Orphenadrine Citrate 100 Mg Tablet.er 100 Mg PO Q12HR Anaprox Ds (Naproxen Sodium) 550 Mg Tablet 550 Mg PO Q12HR Allergies Allergies: Coded Allergies: No Known Drug Allergies (Unverified , 06/24/16) ROS Respiratory: YES: Pleuritic Pain Physical Exam General: Alert, Oriented X3, Cooperative, No acute distress HEENT: PERRLA Lungs: Normal air movement, Other (NTTP on chest, stable) Abdomen: Soft, No tenderness Extremities: No clubbing, No cyanosis Skin: No rashes, No breakdown Neuro: Normal speech, Sensation intact Psych/Mental Status: Mental status NL, Mood NL Vitals VITALS Vital Signs Date Time Temp Pulse Resp B/P (MAP) Pulse Ox O2 Delivery O2 Flow Rate FiO2 02/25/19 13:33 90 12 100 Nasal Cannula 2.0 02/25/19 11:00 98.1 140/98 (112) 98.1 Labs Labs Laboratory Tests Test 02/24/19 15:37 02/25/19 08:15 02/25/19 09:45 White Blood Count 6.5 x10^3/uL (4.0-11.0) 4.0 x10^3/uL (4.0-11.0) Red Blood Count 4.50 x10^6/uL (4.30-5.70) 4.18 x10^6/uL (4.30-5.70) Hemoglobin 14.5 g/dL (13.0-17.5) 13.2 g/dL (13.0-17.5) Hematocrit 41.8 % (39.0-53.0) 38.5 % (39.0-53.0) Mean Corpuscular Volume 93 fL (79-100) 92 fL (79-100) Mean Corpuscular Hemoglobin 32 pg (25-35) 32 pg (25-35) Mean Corpuscular Hemoglobin Concent 35 g/dL (31-37) 34 g/dL (31-37) Red Cell Distribution Width 12.7 % (11.5-14.5) 12.3 % (11.5-14.5) Platelet Count 272 x10^3/uL (140-400) 246 x10^3/uL (140-400) Neutrophils (%) (Auto) 56 % (31-73) 56 % (31-73) Lymphocytes (%) (Auto) 24 % (24-48) 24 % (24-48) Monocytes (%) (Auto) 16 % (0-9) 16 % (0-9) Eosinophils (%) (Auto) 2 % (0-3) 2 % (0-3) Basophils (%) (Auto) 1 % (0-3) 2 % (0-3) Neutrophils # (Auto) 3.6 x10^3/uL (1.8-7.7) 2.2 x10^3/uL (1.8-7.7) Lymphocytes # (Auto) 1.6 x10^3/uL (1.0-4.8) 1.0 x10^3/uL (1.0-4.8) Monocytes # (Auto) 1.1 x10^3/uL (0.0-1.1) 0.6 x10^3/uL (0.0-1.1) Eosinophils # (Auto) 0.1 x10^3/uL (0.0-0.7) 0.1 x10^3/uL (0.0-0.7) Basophils # (Auto) 0.1 x10^3/uL (0.0-0.2) 0.1 x10^3/uL (0.0-0.2) Prothrombin Time 12.7 SEC (11.7-14.0) Prothromb Time International Ratio 1.0 (0.8-1.1) Sodium Level 138 mmol/L (136-145) 139 mmol/L (136-145) Potassium Level 4.2 mmol/L (3.5-5.1) 3.5 mmol/L (3.5-5.1) Chloride Level 99 mmol/L (98-107) 102 mmol/L (98-107) Carbon Dioxide Level 29 mmol/L (21-32) 29 mmol/L (21-32) Anion Gap 10 (6-14) 8 (6-14) Blood Urea Nitrogen 15 mg/dL (8-26) 10 mg/dL (8-26) Creatinine 0.9 mg/dL (0.7-1.3) 0.9 mg/dL (0.7-1.3) Estimated GFR (Cockcroft-Gault) 107.2 107.2 BUN/Creatinine Ratio 17 (6-20) 11 (6-20) Glucose Level 90 mg/dL (70-99) 101 mg/dL (70-99) Calcium Level 10.1 mg/dL (8.5-10.1) 9.2 mg/dL (8.5-10.1) Total Bilirubin 0.8 mg/dL (0.2-1.0) 0.7 mg/dL (0.2-1.0) Aspartate Amino Transf (AST/SGOT) 29 U/L (15-37) 26 U/L (15-37) Alanine Aminotransferase (ALT/SGPT) 33 U/L (16-63) 25 U/L (16-63) Alkaline Phosphatase 76 U/L (46-116) 61 U/L (46-116) Total Protein 9.2 g/dL (6.4-8.2) 8.0 g/dL (6.4-8.2) Albumin 4.0 g/dL (3.4-5.0) 3.2 g/dL (3.4-5.0) Albumin/Globulin Ratio 0.8 (1.0-1.7) 0.7 (1.0-1.7) Urine Opiates Screen Neg (NEG) Urine Methadone Screen Neg (NEG) Urine Barbiturates Neg (NEG) Urine Phencyclidine Screen Neg (NEG) Urine Amphetamine/Methamphetamine Neg (NEG) Urine Benzodiazepines Screen Neg (NEG) Urine Cocaine Screen Neg (NEG) Urine Cannabinoids Screen Neg (NEG) Urine Ethyl Alcohol Neg (NEG) Laboratory Tests Test 02/24/19 15:37 02/25/19 08:15 02/25/19 09:45 White Blood Count 6.5 x10^3/uL (4.0-11.0) 4.0 x10^3/uL (4.0-11.0) Red Blood Count 4.50 x10^6/uL (4.30-5.70) 4.18 x10^6/uL (4.30-5.70) Hemoglobin 14.5 g/dL (13.0-17.5) 13.2 g/dL (13.0-17.5) Hematocrit 41.8 % (39.0-53.0) 38.5 % (39.0-53.0) Mean Corpuscular Volume 93 fL (79-100) 92 fL (79-100) Mean Corpuscular Hemoglobin 32 pg (25-35) 32 pg (25-35) Mean Corpuscular Hemoglobin Concent 35 g/dL (31-37) 34 g/dL (31-37) Red Cell Distribution Width 12.7 % (11.5-14.5) 12.3 % (11.5-14.5) Platelet Count 272 x10^3/uL (140-400) 246 x10^3/uL (140-400) Neutrophils (%) (Auto) 56 % (31-73) 56 % (31-73) Lymphocytes (%) (Auto) 24 % (24-48) 24 % (24-48) Monocytes (%) (Auto) 16 % (0-9) 16 % (0-9) Eosinophils (%) (Auto) 2 % (0-3) 2 % (0-3) Basophils (%) (Auto) 1 % (0-3) 2 % (0-3) Neutrophils # (Auto) 3.6 x10^3/uL (1.8-7.7) 2.2 x10^3/uL (1.8-7.7) Lymphocytes # (Auto) 1.6 x10^3/uL (1.0-4.8) 1.0 x10^3/uL (1.0-4.8) Monocytes # (Auto) 1.1 x10^3/uL (0.0-1.1) 0.6 x10^3/uL (0.0-1.1) Eosinophils # (Auto) 0.1 x10^3/uL (0.0-0.7) 0.1 x10^3/uL (0.0-0.7) Basophils # (Auto) 0.1 x10^3/uL (0.0-0.2) 0.1 x10^3/uL (0.0-0.2) Prothrombin Time 12.7 SEC (11.7-14.0) Prothromb Time International Ratio 1.0 (0.8-1.1) Sodium Level 138 mmol/L (136-145) 139 mmol/L (136-145) Potassium Level 4.2 mmol/L (3.5-5.1) 3.5 mmol/L (3.5-5.1) Chloride Level 99 mmol/L (98-107) 102 mmol/L (98-107) Carbon Dioxide Level 29 mmol/L (21-32) 29 mmol/L (21-32) Anion Gap 10 (6-14) 8 (6-14) Blood Urea Nitrogen 15 mg/dL (8-26) 10 mg/dL (8-26) Creatinine 0.9 mg/dL (0.7-1.3) 0.9 mg/dL (0.7-1.3) Estimated GFR (Cockcroft-Gault) 107.2 107.2 BUN/Creatinine Ratio 17 (6-20) 11 (6-20) Glucose Level 90 mg/dL (70-99) 101 mg/dL (70-99) Calcium Level 10.1 mg/dL (8.5-10.1) 9.2 mg/dL (8.5-10.1) Total Bilirubin 0.8 mg/dL (0.2-1.0) 0.7 mg/dL (0.2-1.0) Aspartate Amino Transf (AST/SGOT) 29 U/L (15-37) 26 U/L (15-37) Alanine Aminotransferase (ALT/SGPT) 33 U/L (16-63) 25 U/L (16-63) Alkaline Phosphatase 76 U/L (46-116) 61 U/L (46-116) Total Protein 9.2 g/dL (6.4-8.2) 8.0 g/dL (6.4-8.2) Albumin 4.0 g/dL (3.4-5.0) 3.2 g/dL (3.4-5.0) Albumin/Globulin Ratio 0.8 (1.0-1.7) 0.7 (1.0-1.7) Urine Opiates Screen Neg (NEG) Urine Methadone Screen Neg (NEG) Urine Barbiturates Neg (NEG) Urine Phencyclidine Screen Neg (NEG) Urine Amphetamine/Methamphetamine Neg (NEG) Urine Benzodiazepines Screen Neg (NEG) Urine Cocaine Screen Neg (NEG) Urine Cannabinoids Screen Neg (NEG) Urine Ethyl Alcohol Neg (NEG) Images Images CT chest c/w rib fractures and pulm nodules Assessment/Plan Assessment/Plan s/p fall agree with evaluation by IR with possible tube placement and/or biopsy. Recommend CTS consult for possible VATS, if needed. Defer to CTS. Thanks for consult! PETR EDWARDS MD Feb 25, 2019 13:47
[2019-02-25] MEDS ORDERED: MIDAZOLAM HCL/PF 2 MG/2 ML VIAL. IV ONE (14:00)
[2019-02-25] MEDS ORDERED: fentaNYL PF VIAL 100 MCG/2 ML VIAL IV ONE (14:00)
[2019-02-25] MEDS ORDERED: LIDOCAINE WITH 8.4% SOD BICARB 3 ML DISP.SYRIN. IJ ONE (14:00)
--- NOTE | 2019-02-25 16:13 | RAD ---
Single AP view of the chest. Comparison: 02/24/2019. Indication: Postthoracentesis Findings: The heart is not enlarged. There is no pneumothorax or effusion. Stable round appearing mass in the right lung base. Impression: 1. No acute cardiopulmonary process. 2. Near complete resolution of the patient's small pleural effusion. 3. Stable right lower lobe pulmonary mass. Electronically signed by: Neri Castillo MD (02/25/2019 4:10 PM) [id number]
[2019-02-25 17:00] LABS: BF COLOR RED; BF SOURCE PLEURAL
[2019-02-25 17:01] LABS: BF CLARITY TURBID
[2019-02-25 17:02] LABS: BF RBC COUNT 367255 /cmm (Not Established); BF WBC COUNT 307195 /cmm (Not Established)
[2019-02-25 17:05] LABS: PH,BODY FLUID 7.11
[2019-02-25] MEDS: ZOLPIDEM 5 MG TABLET. PO PRN (20:58)
[2019-02-25] MEDS: oxyCODONE/APAP 5/325 1 TAB TABLET PO PRN (20:58)
[2019-02-26] MEDS: oxyCODONE/APAP 5/325 1 TAB TABLET PO PRN ×3 (02:24→21:06)
[2019-02-26] MEDS: IPRATRPIUM/ALBUTEROL 0.5/2.5MG 3 ML NEBU. NEB SCH ×7 (03:22→23:40)
[2019-02-26 03:59] VITALS: BP 144/98
[2019-02-26] MEDS: IV NORMAL SALINE 1000ML BAG 1,000 ML IV SCH ×2 (06:01→16:01)
[2019-02-26 07:10] VITALS: BP 149/96
[2019-02-26] MEDS: THIAMINE 100 MG TABLET. PO SCH (09:02)
[2019-02-26] MEDS: MULTIVITAMIN with MINERAL TABLET. PO SCH (09:02)
[2019-02-26] MEDS: FOLIC ACID 1 MG TABLET. PO SCH (09:02)
--- NOTE | 2019-02-26 09:50 | RAD ---
Procedure: CT-guided right pleural fluid collection aspiration Clinical Indication: multiloculated right pleural mass or fluid collection with areas of calcification. Sedation: Conscious sedation was administered for 15 minutes. The patient was monitored by a qualified independent observer throughout the time of sedation. Please refer to the medical record for exact doses of medications utilized to achieve moderate sedation. The procedure was performed in its entirety using appropriate elements of sterile technique. Consent: The procedure was explained in its entirety to the patient or the patients designated provider relations representative by a member of the treatment team, including a discussion of the risks, benefits and commonly accepted alternatives to the procedure, as well as the expected consequences of no therapy whatsoever. Discussion of the risks included, but was not limited to, those that are most frequent and those that are rare but possibly severe or life-threatening, as well as the possibility of unforeseen complications. Technique and Findings: Following informed consent, the patient was prepped and draped in the usual sterile fashion. 1% Lidocaine was used to achieve local anesthesia over right chest. A small dermatotomy was made. Under periodic CT surveillance, a Sheathed needle was advanced into the targeted pleural collection. Chronic appearing hematoma was aspirated, thought only 12 cc could be removed. This was sent for culture and cytology. The catheter was then removed and hemostasis was achieved with manual compression. Complications: No immediate Impression: CT-guided right pleural fluid collection aspiration. PQRS Compliance Statement: One or more of the following individualized dose reduction techniques were utilized for this examination: 1. Automated exposure control 2. Adjustment of the mA and/or kV according to patient size 3. Use of iterative reconstruction technique
--- NOTE | 2019-02-26 10:44 | PDOC ---
[employer] PROGRESS NOTE Chief Complaint Chief Complaint Hemothorax Hypertension History of Present Illness History of Present Illness 02/26/19 Pt seen and examined at bedside Pt sitting comfortably on side of bed Discussed plan for discharge with patient 02/25/19 Pt seen and examined at bedside Pt sitting on side of bed with NAD Chest tube procedure today DW multiple family members at length DW Dr Trinidad Vitals/I&O Vitals/I&O: Vital Signs Date Time Temp Pulse Resp B/P (MAP) Pulse Ox O2 Delivery O2 Flow Rate FiO2 02/26/19 09:02 96 Room Air 2.0 02/26/19 07:10 98.4 85 16 149/96 (113) 98.4 Physical Exam General: Alert, Oriented X3, Cooperative, No acute distress Heart: Regular rate, Normal S1 Lungs: Other (decrease right base) Abdomen: Soft, No tenderness Extremities: No clubbing, No cyanosis Skin: No rashes, No breakdown Labs Labs: Laboratory Tests Test 02/25/19 13:50 Body Fluid Source Pleural Body Fluid Color Red Body Fluid Clarity Turbid Body Fluid pH 7.11 Body Fluid Nucleated Cells 609992 /cmm (Not Body Fluid Polymorphonuclear Cells % Body Fluid Total RBCs Counted 387406 /cmm (Not Review of Systems Review of Systems: no co SOB no co cough Assessment and Plan Assessmemt and Plan Problems Medical Problems: (1) Fracture of rib of right side Status: Acute (2) Hemothorax on right Status: Acute Assessment Hemothorax Hypertension Plan Discharge w/ Percocet 5 mg DVT prophylaxis Home Meds PT/OT IV fluids Discharge if okay with Pulm Comment Review of Relevant I have reviewed the following items amanda (where applicable) has been applied. Medications: Current Medications Medications (Trade) Dose Ordered Sig/Stacy Route PRN Reason Start Time Stop Time Status Last Admin Dose Admin Lidocaine/Sodium Bicarbonate (Buffered Lidocaine 1%) 5 ml 1X ONCE IJ 02/25/19 14:00 02/25/19 14:01 DC 02/25/19 13:57 Midazolam HCl (Versed) 2 mg 1X ONCE IV 02/25/19 14:00 02/25/19 14:01 DC 02/25/19 13:57 Fentanyl Citrate (Fentanyl 2ml Vial) 100 mcg 1X ONCE IV 02/25/19 14:00 02/25/19 14:01 DC 02/25/19 13:57 ADAM RICE III DO Feb 26, 2019 10:44
[2019-02-26 11:10] VITALS: BP 140/99
--- NOTE | 2019-02-26 11:11 | PDOC ---
CARMEL MENDEZ [employer] 02/26/19 1111: SURGICAL PROGRESS NOTE Subjective denies pain no soa tolerating diet Vital Signs Vital Signs Date Time Temp Pulse Resp B/P (MAP) Pulse Ox O2 Delivery O2 Flow Rate FiO2 02/26/19 10:57 96 Room Air 2.0 02/26/19 07:10 98.4 85 16 149/96 (113) 98.4 General: Alert, Oriented X3, Cooperative, No acute distress Lungs: Normal air movement Abdomen: Soft, No tenderness Labs Laboratory Tests Test 02/24/19 15:37 02/25/19 08:15 02/25/19 09:45 02/25/19 13:50 White Blood Count 6.5 x10^3/uL (4.0-11.0) 4.0 x10^3/uL (4.0-11.0) Red Blood Count 4.50 x10^6/uL (4.30-5.70) 4.18 x10^6/uL (4.30-5.70) Hemoglobin 14.5 g/dL (13.0-17.5) 13.2 g/dL (13.0-17.5) Hematocrit 41.8 % (39.0-53.0) 38.5 % (39.0-53.0) Mean Corpuscular Volume 93 fL (79-100) 92 fL (79-100) Mean Corpuscular Hemoglobin 32 pg (25-35) 32 pg (25-35) Mean Corpuscular Hemoglobin Concent 35 g/dL (31-37) 34 g/dL (31-37) Red Cell Distribution Width 12.7 % (11.5-14.5) 12.3 % (11.5-14.5) Platelet Count 272 x10^3/uL (140-400) 246 x10^3/uL (140-400) Neutrophils (%) (Auto) 56 % (31-73) 56 % (31-73) Lymphocytes (%) (Auto) 24 % (24-48) 24 % (24-48) Monocytes (%) (Auto) 16 % (0-9) 16 % (0-9) Eosinophils (%) (Auto) 2 % (0-3) 2 % (0-3) Basophils (%) (Auto) 1 % (0-3) 2 % (0-3) Neutrophils # (Auto) 3.6 x10^3/uL (1.8-7.7) 2.2 x10^3/uL (1.8-7.7) Lymphocytes # (Auto) 1.6 x10^3/uL (1.0-4.8) 1.0 x10^3/uL (1.0-4.8) Monocytes # (Auto) 1.1 x10^3/uL (0.0-1.1) 0.6 x10^3/uL (0.0-1.1) Eosinophils # (Auto) 0.1 x10^3/uL (0.0-0.7) 0.1 x10^3/uL (0.0-0.7) Basophils # (Auto) 0.1 x10^3/uL (0.0-0.2) 0.1 x10^3/uL (0.0-0.2) Prothrombin Time 12.7 SEC (11.7-14.0) Prothromb Time International Ratio 1.0 (0.8-1.1) Sodium Level 138 mmol/L (136-145) 139 mmol/L (136-145) Potassium Level 4.2 mmol/L (3.5-5.1) 3.5 mmol/L (3.5-5.1) Chloride Level 99 mmol/L (98-107) 102 mmol/L (98-107) Carbon Dioxide Level 29 mmol/L (21-32) 29 mmol/L (21-32) Anion Gap 10 (6-14) 8 (6-14) Blood Urea Nitrogen 15 mg/dL (8-26) 10 mg/dL (8-26) Creatinine 0.9 mg/dL (0.7-1.3) 0.9 mg/dL (0.7-1.3) Estimated GFR (Cockcroft-Gault) 107.2 107.2 BUN/Creatinine Ratio 17 (6-20) 11 (6-20) Glucose Level 90 mg/dL (70-99) 101 mg/dL (70-99) Calcium Level 10.1 mg/dL (8.5-10.1) 9.2 mg/dL (8.5-10.1) Total Bilirubin 0.8 mg/dL (0.2-1.0) 0.7 mg/dL (0.2-1.0) Aspartate Amino Transf (AST/SGOT) 29 U/L (15-37) 26 U/L (15-37) Alanine Aminotransferase (ALT/SGPT) 33 U/L (16-63) 25 U/L (16-63) Alkaline Phosphatase 76 U/L (46-116) 61 U/L (46-116) Total Protein 9.2 g/dL (6.4-8.2) 8.0 g/dL (6.4-8.2) Albumin 4.0 g/dL (3.4-5.0) 3.2 g/dL (3.4-5.0) Albumin/Globulin Ratio 0.8 (1.0-1.7) 0.7 (1.0-1.7) Urine Opiates Screen Neg (NEG) Urine Methadone Screen Neg (NEG) Urine Barbiturates Neg (NEG) Urine Phencyclidine Screen Neg (NEG) Urine Amphetamine/Methamphetamine Neg (NEG) Urine Benzodiazepines Screen Neg (NEG) Urine Cocaine Screen Neg (NEG) Urine Cannabinoids Screen Neg (NEG) Urine Ethyl Alcohol Neg (NEG) Body Fluid Source Pleural Body Fluid Color Red Body Fluid Clarity Turbid Body Fluid pH 7.11 Body Fluid Nucleated Cells 022936 /cmm (Not Body Fluid Polymorphonuclear Cells % Body Fluid Total RBCs Counted 015470 /cmm (Not Laboratory Tests Test 02/25/19 13:50 Body Fluid Source Pleural Body Fluid Color Red Body Fluid Clarity Turbid Body Fluid pH 7.11 Body Fluid Nucleated Cells 663284 /cmm (Not Body Fluid Polymorphonuclear Cells % Body Fluid Total RBCs Counted 165364 /cmm (Not Problem List Problems Medical Problems: (1) Fracture of rib of right side Status: Acute (2) Hemothorax on right Status: Acute Assessment/Plan supportive measures PETR EDWARDS MD 02/26/19 1321: SURGICAL PROGRESS NOTE Assessment/Plan Pt seen and examined. Agree with Ms. Mendez's note Pt denies complaint defer pulm nodule eval to pulm and CTS. Will sign off, but please call for questions. CARMEL MENDEZ APRN Feb 26, 2019 11:11 PETR EDWARDS MD Feb 26, 2019 13:21
--- NOTE | 2019-02-26 12:03 | PDOC ---
PULMONARY PROGRESS NOTES Subjective no soa feels better only 12 cc of fluid came out/ organized hemothorax Vitals Vital Signs Date Time Temp Pulse Resp B/P (MAP) Pulse Ox O2 Delivery O2 Flow Rate FiO2 02/26/19 11:26 Room Air 02/26/19 11:10 98.2 67 16 140/99 (113) 98 98.2 02/26/19 10:57 2.0 General: Alert, No acute distress Lungs: Other (decrease right base) Cardiovascular: S1 Abdomen: Soft Neuro Exam: Alert Extremities: No Edema Skin: Warm Labs Laboratory Tests Test 02/24/19 15:37 02/25/19 08:15 02/25/19 09:45 02/25/19 13:50 White Blood Count 6.5 x10^3/uL (4.0-11.0) 4.0 x10^3/uL (4.0-11.0) Red Blood Count 4.50 x10^6/uL (4.30-5.70) 4.18 x10^6/uL (4.30-5.70) Hemoglobin 14.5 g/dL (13.0-17.5) 13.2 g/dL (13.0-17.5) Hematocrit 41.8 % (39.0-53.0) 38.5 % (39.0-53.0) Mean Corpuscular Volume 93 fL (79-100) 92 fL (79-100) Mean Corpuscular Hemoglobin 32 pg (25-35) 32 pg (25-35) Mean Corpuscular Hemoglobin Concent 35 g/dL (31-37) 34 g/dL (31-37) Red Cell Distribution Width 12.7 % (11.5-14.5) 12.3 % (11.5-14.5) Platelet Count 272 x10^3/uL (140-400) 246 x10^3/uL (140-400) Neutrophils (%) (Auto) 56 % (31-73) 56 % (31-73) Lymphocytes (%) (Auto) 24 % (24-48) 24 % (24-48) Monocytes (%) (Auto) 16 % (0-9) 16 % (0-9) Eosinophils (%) (Auto) 2 % (0-3) 2 % (0-3) Basophils (%) (Auto) 1 % (0-3) 2 % (0-3) Neutrophils # (Auto) 3.6 x10^3/uL (1.8-7.7) 2.2 x10^3/uL (1.8-7.7) Lymphocytes # (Auto) 1.6 x10^3/uL (1.0-4.8) 1.0 x10^3/uL (1.0-4.8) Monocytes # (Auto) 1.1 x10^3/uL (0.0-1.1) 0.6 x10^3/uL (0.0-1.1) Eosinophils # (Auto) 0.1 x10^3/uL (0.0-0.7) 0.1 x10^3/uL (0.0-0.7) Basophils # (Auto) 0.1 x10^3/uL (0.0-0.2) 0.1 x10^3/uL (0.0-0.2) Prothrombin Time 12.7 SEC (11.7-14.0) Prothromb Time International Ratio 1.0 (0.8-1.1) Sodium Level 138 mmol/L (136-145) 139 mmol/L (136-145) Potassium Level 4.2 mmol/L (3.5-5.1) 3.5 mmol/L (3.5-5.1) Chloride Level 99 mmol/L (98-107) 102 mmol/L (98-107) Carbon Dioxide Level 29 mmol/L (21-32) 29 mmol/L (21-32) Anion Gap 10 (6-14) 8 (6-14) Blood Urea Nitrogen 15 mg/dL (8-26) 10 mg/dL (8-26) Creatinine 0.9 mg/dL (0.7-1.3) 0.9 mg/dL (0.7-1.3) Estimated GFR (Cockcroft-Gault) 107.2 107.2 BUN/Creatinine Ratio 17 (6-20) 11 (6-20) Glucose Level 90 mg/dL (70-99) 101 mg/dL (70-99) Calcium Level 10.1 mg/dL (8.5-10.1) 9.2 mg/dL (8.5-10.1) Total Bilirubin 0.8 mg/dL (0.2-1.0) 0.7 mg/dL (0.2-1.0) Aspartate Amino Transf (AST/SGOT) 29 U/L (15-37) 26 U/L (15-37) Alanine Aminotransferase (ALT/SGPT) 33 U/L (16-63) 25 U/L (16-63) Alkaline Phosphatase 76 U/L (46-116) 61 U/L (46-116) Total Protein 9.2 g/dL (6.4-8.2) 8.0 g/dL (6.4-8.2) Albumin 4.0 g/dL (3.4-5.0) 3.2 g/dL (3.4-5.0) Albumin/Globulin Ratio 0.8 (1.0-1.7) 0.7 (1.0-1.7) Urine Opiates Screen Neg (NEG) Urine Methadone Screen Neg (NEG) Urine Barbiturates Neg (NEG) Urine Phencyclidine Screen Neg (NEG) Urine Amphetamine/Methamphetamine Neg (NEG) Urine Benzodiazepines Screen Neg (NEG) Urine Cocaine Screen Neg (NEG) Urine Cannabinoids Screen Neg (NEG) Urine Ethyl Alcohol Neg (NEG) Body Fluid Source Pleural Body Fluid Color Red Body Fluid Clarity Turbid Body Fluid pH 7.11 Body Fluid Nucleated Cells 050431 /cmm (Not Body Fluid Polymorphonuclear Cells % Body Fluid Total RBCs Counted 968812 /cmm (Not Laboratory Tests Test 02/25/19 13:50 Body Fluid Source Pleural Body Fluid Color Red Body Fluid Clarity Turbid Body Fluid pH 7.11 Body Fluid Nucleated Cells 665548 /cmm (Not Body Fluid Polymorphonuclear Cells % Body Fluid Total RBCs Counted 256148 /cmm (Not Medications Active Scripts Medications Dose Route/Sig Max Daily Dose Days Date Category [place] 5-325 Tablet (Acetaminophen/Hydrocodone Bitart) 1 Each Tablet 1 Tab PO PRN Q6HRS PRN 06/24/16 Rx Orphenadrine Citrate 100 Mg Tablet.er 100 Mg PO Q12HR 06/24/16 Rx Anaprox Ds (Naproxen Sodium) 550 Mg Tablet 550 Mg PO Q12HR 06/24/16 Rx Impression . 1. Status post fall with organized multiloculated fluid collection in the right lower pleural space. ? etiology. Likely organized hemothorax but some calcification suggest chronicity. ? fibrothorax. Clinically, he lacks symptoms of any malignancy and also lacks symptoms of any infectious etiology. s/p thoracentesis, only 12 cc came out. c/w organized hemothorax 2. No significant history of tobacco use. 3. History of alcoholism. Plan . 1. Consult thoracic surgery. May need VATS/ Decortication 2. Pain control per PCP. 3. pleural fluid for analysis c/w hemothorax 4. No coagulopathy RUBENS BALDERRAMA MD Feb 26, 2019 12:03
[2019-02-26 15:15] VITALS: BP 154/106
--- NOTE | 2019-02-26 16:06 | PATHOLOGY ---
Note [facility] Accession Number: [id number] TESTS RESULT FLAG UNITS REF RANGE LAB Clinician Provided Cytology Information No. of containers..01 Other (Miscellaneous) Source: RT LUNG ASPIRATION DIAGNOSIS: RT LUNG ASPIRATION NEGATIVE FOR MALIGNANT CELLS. PROTEINACEOUS MATERIAL IS PRESENT. THIS INTERPRETATION INCLUDES EVALUATION OF A CELL BLOCK. SCANT CELLULARITY. NORMAL BRONCHIAL CELLS AND MACROPHAGES ARE PRESENT. COMMENT, THE SPECIMEN IS POORLY CELLULAR WITH PREDOMINANTLY BLOOD AND MAY NOT BE HOT DIP GALVANIZER. SUGGEST REPEAT PROCEDURE IF A MASS IS PRESENT AND MALIGNANCY IS SUSPECTED. Signed out by: 02 Darryl Hdez MD, Pathologist NPI- [id number] Performed by: Kaylynn Cunha, [employer] ([facility]) Gross description: 01 2.5 ML, BROWN, THICK /LCS FLAG LEGEND: L-Low Normal,H-High Normal,LL-Alert Low,HH-Alert High <-Panic Low,>-Panic High,A-Abnormal,AA-Critical Abnormal Performed at: [facility] [address] [place] [address] Edgar Bazzi MD, 02 [facility] [address] [place] [address] Scott Trujillo MD, Specimen Comment: A courtesy copy of this report has been sent to Specimen Comment: [phone]. Specimen Comment: Report sent to Performed at: 01 [facility] [place] [address], [place], [place] [id number] MD Edgar Bazzi MD Phone: [phone]
--- NOTE | 2019-02-26 19:33 | PDOC2 ---
CONSULT Date of Consult Date of Consult DATE: 02/26/19 TIME: 19:17 Reason for Consult Reason for Consult: Mechanical fall, right 11th rib fracture, right pleural pathology Referring Physician Referring Physician: Dr Franklin Identification/Chief Complaint Chief Complaint Right sided chest wall pain Source Source: Chart review, Patient History of Present Illness Reason for Visit: The patient is a 53-year-old male, with a history of heavy alcohol consumption, who reports sustaining a mechanical fall approximately one week ago. He tripped and fell on the right side of his chest wall. He denies any LOC. He came to the hospital on February 24, 2019 owing to right-sided pleuritic/torso pain. He underwent a noncontrast CT of the chest which demonstrated a well-circumscribed, 11 cm density with calcification. The differential diagnosis included a loculated hemothorax. An attempt at percutaneous drainage was made which was unsuccessful. He currently has no pain and has normal oxygen saturations on room air. I've reviewed his imaging. His chest x-ray shows a possible right pleural- peritoneal density. Otherwise the chest x-ray is normal. His CT scan, which is without contrast, demonstrates a well-circumscribed density with calcifications within and measures 11 cm in maximum diameter. This density appears to be compressing the dome of the liver. It is also compressing the right lower lobe of the lung. It is not possible, based on the current imaging which lacks intravenous contrast, to determine if the origin of this density/mass is intrapleural or intraperitoneal. Past Medical History Cardiovascular: No pertinent hx ENT: No pertinent hx Past Surgical History Past Surgical History: No pertinent history Family History Family History: High Cholestrol, Hypertension Social History <1 pack per day ALCOHOL: heavy Drugs: None Current Problem List Problem List Problems Medical Problems: (1) Fracture of rib of right side Status: Acute (2) Hemothorax on right Status: Acute Current Medications Current Medications Current Medications Tramadol HCl (Ultram) 50 mg 1X ONCE PO Last administered on 02/24/19at 13:13; Start 02/24/19 at 13:15; Stop 02/24/19 at 13:16; Status DC Sodium Chloride (Normal Saline Flush) 3 ml QSHIFT PRN IV AFTER MEDS AND BLOOD DRAWS; Start 02/24/19 at 15:30 Sodium Chloride 1,000 ml @ 100 mls/hr Q10H IV Last administered on 02/26/19at 06:15; Start 02/25/19 at 00:01 Multivitamins 10 ml/Thiamine HCl 100 mg/Folic Acid 1 mg/Sodium Chloride 1,011.2 ml @ 125 mls/ hr 1X IV ; Start 02/24/19 at 16:00; Stop 02/25/19 at 00:06; Status Cancel Ondansetron HCl (Zofran) 4 mg PRN Q4HRS PRN IV NAUSEA/VOMITING; Start 02/24/19 at 15:30 Zolpidem Tartrate (Ambien) 5 mg PRN QHS PRN PO INSOMNIA Last administered on 02/25/19at 20:58; Start 02/24/19 at 15:30 Acetaminophen (Tylenol) 650 mg PRN Q4HRS PRN PO TEMP OVER 100.4F OR MILD PAIN Last administered on 02/25/19at 03:08; Start 02/24/19 at 15:30 Al Hydroxide/Mg Hydroxide (Mylanta Plus Xs) 30 ml PRN DAILY PRN PO HEARTBURN / GAS; Start 02/24/19 at 15:30 Clonidine HCl (Catapres) 0.1 mg PRN Q6HRS PRN PO SBP>160 OR DBP>90; Start 02/24/19 at 15:30 Diphenhydramine HCl (Benadryl) 25 mg PRN Q4HRS PRN IVP ITCHING; Start 02/24/19 at 15:30 Docusate Sodium (Colace) 100 mg PRN BID PRN PO CONSTIPATION; Start 02/24/19 at 15:30 Albuterol/ Ipratropium (Duoneb) 3 ml Q4H NEB Last administered on 02/26/19at 15:19; Start 02/24/19 at 16:00 Guaifenesin (Robitussin) 200 mg PRN Q4HRS PRN PO COUGH; Start 02/24/19 at 15:30 Lorazepam (Ativan) 0.5 mg PRN Q4HRS PRN PO ANXIETY / AGITATION Last administered on 02/25/19at 03:08; Start 02/24/19 at 15:30 Multivitamins 10 ml/Thiamine HCl 100 mg/Folic Acid 1 mg/Sodium Chloride 1,011.2 ml @ 100 mls/ hr DAILY IV ; Start 02/25/19 at 09:00; Stop 03/01/19 at 19:07; Status UNV Multivitamins (Thera M Plus) 1 tab DAILY PO Last administered on 02/26/19at 09:02; Start 02/25/19 at 09:00 Folic Acid (Folic Acid) 1 mg DAILY PO Last administered on 02/26/19at 09:02; Start 02/25/19 at 09:00 Thiamine HCl 100 mg/Dextrose 51 ml @ 100 mls/hr DAILY IV ; Start 02/25/19 at 09:00; Stop 03/01/19 at 09:31; Status UNV Lorazepam (Ativan) 4 mg PRN Q1HR PRN PO For CIWA 8-14; Start 02/24/19 at 15:30 Lorazepam (Ativan) 8 mg PRN Q1HR PRN PO For CIWA 15 or greater; Start 02/24/19 at 15:30 Lorazepam (Ativan Inj) 2 mg PRN Q1HR PRN IV For CIWA 8-14; Start 02/24/19 at 15:30 Lorazepam (Ativan Inj) 4 mg PRN Q1HR PRN IV For CIWA 15 or greater; Start 02/24/19 at 15:30 Haloperidol Lactate (Haldol Inj) 5 mg PRN Q4HRS PRN IVP Loza ucinatns,Confusn,Delirium; Start 02/24/19 at 15:30 Diphenhydramine HCl (Benadryl) 25 mg PRN Q15MIN PRN IVP EPS symptoms 2'Haldol admin; Start 02/24/19 at 15:30 Clonidine HCl (Catapres) 0.1 mg PRN Q1HR PRN PO SBP > 180 or DBP > 100, MRX3; Start 02/24/19 at 15:30 Lorazepam (Ativan Inj) 2 mg PRN Q15MIN PRN IV SEE COMMENTS; Start 02/24/19 at 15:30; Status UNV Lorazepam (Ativan Inj) 4 mg PRN Q15MIN PRN IV SEE COMMENTS; Start 02/24/19 at 15:30; Status UNV Thiamine Mononitrate (Vitamin B-1) 100 mg DAILY PO Last administered on 02/26/19at 09:02; Start 02/25/19 at 09:00 Multivitamins 10 ml/Thiamine HCl 100 mg/Folic Acid 1 mg/Sodium Chloride 1,011.2 ml @ 125 mls/ hr 1X ONCE IV Last administered on 02/24/19at 17:27; Start 02/24/19 at 17:30; Stop 02/25/19 at 01:35; Status DC Oxycodone/ Acetaminophen (Percocet 5/325) 1 tab PRN Q3HRS PRN PO SEVERE PAIN 7- 10 Last administered on 02/26/19at 09:02; Start 02/25/19 at 03:30 Lidocaine/Sodium Bicarbonate (Buffered Lidocaine 1%) 3 ml STK-MED ONCE .ROUTE ; Start 02/25/19 at 13:02; Stop 02/25/19 at 13:02; Status DC Lidocaine/Sodium Bicarbonate (Buffered Lidocaine 1%) 3 ml STK-MED ONCE .ROUTE ; Start 02/25/19 at 13:03; Stop 02/25/19 at 13:03; Status DC Midazolam HCl (Versed) 2 mg STK-MED ONCE .ROUTE ; Start 02/25/19 at 13:25; Stop 02/25/19 at 13:25; Status DC Fentanyl Citrate (Fentanyl 2ml Vial) 100 mcg STK-MED ONCE .ROUTE ; Start 02/25/19 at 13:25; Stop 02/25/19 at 13:25; Status DC Midazolam HCl (Versed) 2 mg STK-MED ONCE .ROUTE ; Start 02/25/19 at 13:26; Stop 02/25/19 at 13:27; Status DC Fentanyl Citrate (Fentanyl 2ml Vial) 100 mcg STK-MED ONCE .ROUTE ; Start 02/25/19 at 13:26; Stop 02/25/19 at 13:27; Status DC Lidocaine/Sodium Bicarbonate (Buffered Lidocaine 1%) 5 ml 1X ONCE IJ Last administered on 02/25/19at 13:57; Start 02/25/19 at 14:00; Stop 02/25/19 at 14:01; Status DC Midazolam HCl (Versed) 2 mg 1X ONCE IV Last administered on 02/25/19at 13:57; Start 02/25/19 at 14:00; Stop 02/25/19 at 14:01; Status DC Fentanyl Citrate (Fentanyl 2ml Vial) 100 mcg 1X ONCE IV Last administered on 02/25/19at 13:57; Start 02/25/19 at 14:00; Stop 02/25/19 at 14:01; Status DC Active Scripts Active Hiddenite 5-325 Tablet (Acetaminophen/Hydrocodone Bitart) 1 Each Tablet 1 Tab PO PRN Q6HRS PRN Orphenadrine Citrate 100 Mg Tablet.er 100 Mg PO Q12HR Anaprox Ds (Naproxen Sodium) 550 Mg Tablet 550 Mg PO Q12HR Allergies Allergies: Coded Allergies: No Known Drug Allergies (Unverified , 06/24/16) ROS General: No: Chills, Night Sweats, Fatigue, Malaise, Appetite PSYCHOLOGICAL ROS: No: Anxiety, Behavioral Disorder, Concentration difficultie, Decreased libido, Depression, Disorientation, Hallucinations, Hostility, Irritab lity, Memory difficulties, Mood Swings, Obsessive thoughts, Physical abuse, Sexual abuse, Sleep disturbances, Suicidal ideation Eyes: No Blurry vision, No Decreased vision, No Double vision, No Dry eyes, No Excessive tearing, No Eye Pain, No Itchy Eyes, No Loss of vision, No Photophobia, No Scotomata, No Uses contacts, No Uses glasses HEENT: No: Heacaches, Visual Changes, Hearing change, Nasal congestion, Nasal discharge, Oral lesions, Sinus pain, Sore Throat, Epistaxis, Sneezing, Snoring, Tinnitus, Vertigo, Vocal changes ALLERGY AND IMMUNOLOGY: No: Hives, Insect Bite Sensitivity, Itchy/Watery Eyes, Nasal Congestion, Post Nasal Drip, Seasonal Allergies Hematological and Lymphatic: No: Bleeding Problems, Blood Clots, Blood Transfusions, Brusing, Night Sweats, Pallor, Swollen Lymph Nodes ENDOCRINE: No: Breast Changes, Galactorrhea, Hair Pattern Changes, Hot Flashes, Malaise/lethargy, Mood Swings, Palpitations, Polydipsia/polyuria, Skin Changes, Temperature Intolerance, Unexpected Weight Changes Respiratory: No: Cough, Hemoptysis, Orthopnea, Pleuritic Pain, Shortness of breath, SOB with excertion, Sputum Changes, Stridor, Tachypnea, Wheezing Cardiovascular: No Chest Pain, No Palpitations, No Orthopnea, No Paroxysmal Noc. Dyspnea, No Edema, No Lt Headedness Gastrointestinal: No Nausea, No Vomiting, No Abdominal Pain, No Diarrhea, No Constipation, No Melena, No Hematochezia Genitourinary: No Dysuria, No Frequency, No Incontinence, No Hematuria, No Retention, No Discharge, No Urgency, No Pain, No Flank Pain Musculoskeletal: No Gait Disturbance, No Joint Pain, No Joint Stiffness, No Joint Swelling, No Muscle Pain, No Muscular Weakness, No Pain In:, No Swelling In: Neurological: No Behavorial Changes, No Bowel/Bladder ControlChng, No Confusion, No Dizziness, No Gait Disturbance, No Headaches, No Impaired Coord/balance, No Memory Loss, No Numbness/Tingling, No Seizures, No Speech Problems, No Tremors, No Visual Changes, No Weakness Skin: No Dry Skin, No Eczema, No Hair Changes, No Lumps, No Mole Changes, No Mottling, No Nail Changes, No Pruritus, No Rash, No Skin Lesion Changes, No Acne Physical Exam General: Alert, Oriented X3, No acute distress HEENT: Atraumatic, PERRLA Lungs: Clear to auscultation Heart: Regular rate, Normal S1, Normal S2, No murmurs Abdomen: Soft Extremities: No edema Skin: No significant lesion Neuro: Normal gait, Normal speech, Strength at 5/5 X4 ext, Normal tone, Sensation intact, Cranial nerves 3-12 NL, Reflexes 2+ Psych/Mental Status: Mental status NL MUSCULOSKELETAL: No deformity Vitals VITALS Vital Signs Date Time Temp Pulse Resp B/P (MAP) Pulse Ox O2 Delivery O2 Flow Rate FiO2 02/26/19 15:20 Room Air 02/26/19 15:15 97.9 90 16 154/106 (122) 97 97.9 02/26/19 10:57 2.0 Labs Labs Laboratory Tests Test 02/25/19 08:15 02/25/19 09:45 02/25/19 13:50 White Blood Count 4.0 x10^3/uL (4.0-11.0) Red Blood Count 4.18 x10^6/uL (4.30-5.70) Hemoglobin 13.2 g/dL (13.0-17.5) Hematocrit 38.5 % (39.0-53.0) Mean Corpuscular Volume 92 fL (79-100) Mean Corpuscular Hemoglobin 32 pg (25-35) Mean Corpuscular Hemoglobin Concent 34 g/dL (31-37) Red Cell Distribution Width 12.3 % (11.5-14.5) Platelet Count 246 x10^3/uL (140-400) Neutrophils (%) (Auto) 56 % (31-73) Lymphocytes (%) (Auto) 24 % (24-48) Monocytes (%) (Auto) 16 % (0-9) Eosinophils (%) (Auto) 2 % (0-3) Basophils (%) (Auto) 2 % (0-3) Neutrophils # (Auto) 2.2 x10^3/uL (1.8-7.7) Lymphocytes # (Auto) 1.0 x10^3/uL (1.0-4.8) Monocytes # (Auto) 0.6 x10^3/uL (0.0-1.1) Eosinophils # (Auto) 0.1 x10^3/uL (0.0-0.7) Basophils # (Auto) 0.1 x10^3/uL (0.0-0.2) Sodium Level 139 mmol/L (136-145) Potassium Level 3.5 mmol/L (3.5-5.1) Chloride Level 102 mmol/L (98-107) Carbon Dioxide Level 29 mmol/L (21-32) Anion Gap 8 (6-14) Blood Urea Nitrogen 10 mg/dL (8-26) Creatinine 0.9 mg/dL (0.7-1.3) Estimated GFR (Cockcroft-Gault) 107.2 BUN/Creatinine Ratio 11 (6-20) Glucose Level 101 mg/dL (70-99) Calcium Level 9.2 mg/dL (8.5-10.1) Total Bilirubin 0.7 mg/dL (0.2-1.0) Aspartate Amino Transf (AST/SGOT) 26 U/L (15-37) Alanine Aminotransferase (ALT/SGPT) 25 U/L (16-63) Alkaline Phosphatase 61 U/L (46-116) Total Protein 8.0 g/dL (6.4-8.2) Albumin 3.2 g/dL (3.4-5.0) Albumin/Globulin Ratio 0.7 (1.0-1.7) Urine Opiates Screen Neg (NEG) Urine Methadone Screen Neg (NEG) Urine Barbiturates Neg (NEG) Urine Phencyclidine Screen Neg (NEG) Urine Amphetamine/Methamphetamine Neg (NEG) Urine Benzodiazepines Screen Neg (NEG) Urine Cocaine Screen Neg (NEG) Urine Cannabinoids Screen Neg (NEG) Urine Ethyl Alcohol Neg (NEG) Body Fluid Source Pleural Body Fluid Color Red Body Fluid Clarity Turbid Body Fluid pH 7.11 Body Fluid Nucleated Cells [id number] /cmm (Not Body Fluid Polymorphonuclear Cells % Body Fluid Total RBCs Counted [id number] /cmm (Not Assessment/Plan Assessment/Plan 53-year-old male, with a history of heavy alcohol consumption, who reports sustaining a mechanical fall approximately one week ago. He tripped and fell on the right side of his chest wall. He denies any LOC. He came to the hospital on February 24, 2019 owing to right-sided pleuritic/torso pain. He underwent a noncontrast CT of the chest which demonstrated a well-circumscribed, 11 cm density with calcification. The differential diagnosis included a loculated hemothorax. An attempt at percutaneous drainage was made which was unsuccessful. He currently has no pain and has normal oxygen saturations on room air. I've reviewed his imaging. His chest x-ray shows a possible right pleural-peritoneal density. Otherwise the chest x-ray is normal. His CT scan, which is without contrast, demonstrates a well-circumscribed density with calcifications within and measures 11 cm in maximum diameter. This density appears to be compressing the dome of the liver. It is also compressing the right lower lobe of the lung. It is not possible, based on the current imaging which lacks intravenous contrast, to determine if the origin of this density/mass is intrapleural or in traperitoneal. It is extremely unlikely, given the appearance of this density on CT and the presence of calcifications within it, that this is a loculated hemothorax. An 11th rib fracture would not cause a hemothorax but would rather cause either injury to the liver if on the right side, or the spleen if on the left side. Furthermore his 11th rib fracture is nondisplaced. 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 It is difficult to determine if it originates above or below the diaphragm. It is possible that it may be a diaphragmatic tumor. It appears to be compressing the dome of the liver more than it is compressing the right lower lobe. The best plan of action would be to proceed with an MRI with contrast of the chest and abdomen to help better delineate the tumor and the surrounding anatomy. If the MRI suggests a tumor, a subsequent core needle biopsy would be recommended. Given that this is not emergent and that MRIs can only be performed as an outpatient at [facility], it is safe to proceed with further work up on an outpatient basis. I've explained to the patient that he needs to follow-up in clinic with Dr. Franklin, given that there is a possibility that this may be a malignant tumor. He expressed understanding of this. GLENN OROZCO MD Feb 26, 2019 19:33
[2019-02-26 19:40] VITALS: BP 146/104
[2019-02-26] MEDS: ZOLPIDEM 5 MG TABLET. PO PRN (21:06)
[2019-02-26 23:46] VITALS: BP 140/93
[2019-02-27] MEDS: IV NORMAL SALINE 1000ML BAG 1,000 ML IV SCH (02:01)
[2019-02-27] MEDS: IPRATRPIUM/ALBUTEROL 0.5/2.5MG 3 ML NEBU. NEB SCH ×2 (03:36→07:21)
[2019-02-27 03:44] VITALS: BP 144/97
[2019-02-27] MEDS: oxyCODONE/APAP 5/325 1 TAB TABLET PO PRN (05:27)
[2019-02-27 07:35] VITALS: BP 158/108
[2019-02-27] MEDS: MULTIVITAMIN with MINERAL TABLET. PO SCH (09:42)
[2019-02-27] MEDS: FOLIC ACID 1 MG TABLET. PO SCH (09:42)
[2019-02-27] MEDS: THIAMINE 100 MG TABLET. PO SCH (09:42)
--- NOTE | 2019-02-27 10:13 | NUR ---
Discharge Note: GARRY DREW [address] [place] [address] Discharge instructions and discharge home medications reviewed with Patient and a copy given. All questions have been answered and understanding verbalized. The following instructions and handouts were given: Diet, activity, medication list and follow up instructions provided to patient. Discontinued lines and drains: Peripheral IV discontinued on previous date with catheter intact. Patient discharged to Home or Self Care withFamily Membervia Wheelchair
--- NOTE | 2019-02-27 11:03 | PDOC ---
[employer] PROGRESS NOTE Chief Complaint Chief Complaint Hemothorax Hypertension History of Present Illness History of Present Illness 02/27/19 Pt seen and examined at bedside Pt sitting comfortably and able to ambulate without help Called Pathology and IR-> FNA pathology was negative for malignancy Planned for DC today 02/26/19 Pt seen and examined at bedside Pt sitting comfortably on side of bed Discussed plan for discharge with patient 02/25/19 Pt seen and examined at bedside Pt sitting on side of bed with NAD Chest tube procedure today DW multiple family members at length DW Dr Trinidad Vitals/I&O Vitals/I&O: Vital Signs Date Time Temp Pulse Resp B/P (MAP) Pulse Ox O2 Delivery O2 Flow Rate FiO2 02/27/19 08:00 Room Air 02/27/19 07:50 97 2.0 02/27/19 07:35 97.6 90 20 158/108 (125) 97.6 I & O 02/26/19 02/26/19 02/27/19 15:00 23:00 07:00 Intake Total 500 ml 500 ml Balance 500 ml 500 ml Physical Exam General: Alert, Oriented X3, No acute distress Heart: Regular rate, Normal S1, Normal S2, No murmurs Lungs: Other (decrease right base) Abdomen: Soft Extremities: No edema Skin: No significant lesion Review of Systems Review of Systems: no co SOB no co cough Assessment and Plan Assessmemt and Plan Problems Medical Problems: (1) Fracture of rib of right side Status: Acute (2) Hemothorax on right Status: Acute Assessment Hemothorax Hypertension Plan Pt at baseline will Discharge home w/ Percocet 5 mg DVT prophylaxis PT/OT Have PCP f/u with PCP in 1 week Home Meds Comment Review of Relevant I have reviewed the following items amanda (where applicable) has been applied. ADAM RICE III DO Feb 27, 2019 11:03
--- NOTE | 2019-02-27 12:09 | DS ---
DATE OF DISCHARGE: 02/27/2019 ADMISSION DIAGNOSIS: Fall with rib fracture. DISCHARGE DIAGNOSES: 1. Resolving fall with hip fracture. 2. Right lower lobe hemothorax. CONSULTS: Interventional Radiology and Pulmonary. PROCEDURES: Right lower lobe hemothorax, fine needle aspiration (I talked to Dr. Trujillo this morning, there are no malignant cells within the aspirate). HOSPITAL COURSE: The patient is a pleasant 53-year-old male who fell and suffered rib fracture had a hemothorax. His imaging looked unusual. He had some scar tissue it was calcified in the right lower lobe. There is also some concern it could be a hematoma. We did consult IR. They took him down and did a fine needle aspiration. We sent the results from pathology and cytology analysis so far, everything looks great. Everything is benign. We plan to discharge with close outpatient followup. DISPOSITION: Home. ACTIVITY: As tolerated. DIET: Low sodium. MEDICATIONS: Please see MRAD. TOTAL TIME: 32 minutes. ADAM RICE DO DR: VENITA/jonathan JOB#: [id number] / [id number]
== END 2019-02-27 10:10 | disposition home or self-care (01) | DRG 205 ==
LOC: ER 11:54 → 6 SOUTH 14:45
PROVIDERS: ADMIT Family Medicine; ATTEND Family Medicine
PROC: 0B9N3ZX Drainage of Right Pleura, Percutaneous Approach, Diagnostic (ICD-10-PCS; principal; 2019-02-26)
DX: S22.31XA Fracture of one rib, right side, initial encounter for closed fracture (principal); S27.1XXA Traumatic hemothorax, initial encounter; J90 Pleural effusion, not elsewhere classified; F10.10 Alcohol abuse, uncomplicated; F17.210 Nicotine dependence, cigarettes, uncomplicated; I10 Essential (primary) hypertension; W01.0XXA Fall on same level from slipping, tripping and stumbling without subsequent striking against object, initial encounter; Z82.49 Family history of ischemic heart disease and other diseases of the circulatory system; Y93.89 Activity, other specified; Y92.89 Other specified places as the place of occurrence of the external cause; Y99.8 Other external cause status
CPT/HCPCS: 10009; 36415; 71045; 71101; 71250; 80053; 80307; 83986; 85025; 85610; 87071; 87075; 87102; 87116; 88112; 88305; 89050; 94640; 94760; 99152; C1892; J2250; J3010; J7030; J7620; 99285-25; G0378